=== PATIENT | male | born 1970 | race Caucasian/White ===

== ENCOUNTER 2022-10-08 01:34 | Observation (INO) ==
[2022-10-08] MEDS ORDERED: SODIUM CHLORIDE 0.9% 1000ML 1,000 ML IV ONE (02:16)
[2022-10-08] MEDS ORDERED: ACETAMINOPHEN 500 MG TAB PO STA (02:17)
[2022-10-08 02:30] LABS: Basophils # (auto) 0.06 K/uL (0-0.2); Basophils % (auto) 0.8 %; Eosinophils # (auto) 0.15 K/uL (0-0.50); Eosinophils % (auto) 2.1 %; Hematocrit (blood only) 48.2 % (40.1-51.0); Hemoglobin 16.9 g/dl (14.0-18.0); Immature Granulocytes # (auto) 0.03 K/uL (0.00-0.02); Immature Granulocytes % (auto) 0.4 %; Lymphocytes % (auto) 19.6 %; Mean Corpuscular Hemoglobin 31.8 pg (25.0-34.0); Mean Corpuscular Hgb Conc 35.1 g/dL (32.0-36.0); Mean Corpuscular Volume 90.8 fL (80.0-100.0); Mean Platelet Volume 11.6 fL (9.4-12.4); Monocytes % (auto) 16.8 %; Neutrophils # (auto) 4.29 K/uL (1.4-6.5); Neutrophils % (auto) 60.3 %; Platelet Count 189 K/uL (130-400); RDW Coefficient of Variation 12.8 % (11.5-14.5); Red Blood Count 5.31 M/uL (4.63-6.08); White Blood Count 7.13 K/ul (4.8-10.8)
[2022-10-08] MEDS ORDERED: ONDANSETRON INJ 2 MG/ML 2 ML VIAL IV STA (03:28)
[2022-10-08 04:33] LABS: Alanine Aminotransferase 54 U/L (7-52); Albumin Level 3.6 gm/dl (3.4-5.0); Alkaline Phosphatase 162 U/L (34-104); Anion Gap 9 (3-11); Aspartate Aminotransferase 47 U/L (13-39); BUN Creatinine Ratio 11.6 (10-20); Bilirubin,Total 0.5 mg/dl (0.2-1.0); Blood Urea Nitrogen 10 mg/dl (6-23); Calcium 8.3 mg/dl (8.5-10.1); Carbon Dioxide 24 mmol/L (21-32); Chloride 95 mmol/L (98-107); Creatinine Clr Calc Pharmacy 130.9 ml/min; Est GFR (African American) 115.6 ml/min; Est GFR (Non-African American) 99.7 ml/min; Glucose 454 mg/dl (70-99(Fasting)); Magnesium 1.9 mg/dl (1.7-2.4); Potassium 4.5 mmol/L (3.5-5.1); Sodium 128 mmol/L (136-145); Total Protein 6.9 gm/dl (6.0-8.3)
[2022-10-08 05:36] LABS: Appearance Urine Clear (Clear); Bilirubin Urine Negative (Negative); Blood Urine Negative (Negative); Color Urine Yellow; Glucose Urine UA 3+ (Negative); Ketones Urine Trace (Negative); Leukocyte Esterase Urine Negative (Negative); Nitrite Urine Negative (Negative); Protein Urine Negative (Negative); Specific Gravity Urine 1.033 (1.000-1.030); Urobilinogen Urine Negative (Negative); pH Urine 5.5 (4.5-7.5)
[2022-10-08] MEDS: SODIUM CHLORIDE 0.9% 500 ML IV SCH ×2 (06:13→12:24)
[2022-10-08] MEDS ORDERED: POLYETHYLENE (MIRALAX) 17 GM PACK PO PRN (06:55)
[2022-10-08] MEDS ORDERED: MAGNESIUM HYDROXIDE SUSP 30 ML UDC PO PRN (06:55)
[2022-10-08] MEDS ORDERED: ALUMINUM/MAGNESIUM SUSP 30 ML UDC PO PRN (06:55)
[2022-10-08] MEDS ORDERED: DEXTROSE 50% 50 ML SYRINGE IV PRN (06:57)
[2022-10-08] MEDS ORDERED: PHARMACY GLYCEMIC MGMT CONSULT PRN (06:57)
[2022-10-08] MEDS ORDERED: CARBOHYDRATES FOR HYPOGLYCEMIA PO PRN (06:57)
[2022-10-08] MEDS ORDERED: GLUCAGON FOR INJ 1 MG VIAL SQ PRN (06:57)
[2022-10-08] MEDS ORDERED: GLUCOSE 10 TAB/TUBE PO PRN (06:57)
[2022-10-08] MEDS ORDERED: GLUCOSE 40% GEL 15 GM TUBE PO PRN (06:57)
--- NOTE | 2022-10-08 07:08 | History & Physical Report ---
Date of Service October 08, 2022 Assessment & Plan (1) Influenza A: Plan Generalized weakness Influenza A Patient reports cough productive of clear sputum, reports becoming weak and fatigue Patient reports decreased appetite in the last few days Supportive care, PT/OT when able Hypoglycemia History of diabetes Blood glucose elevated at admission, will get A1c, glycemic pharmacy consult, sliding scale insulin, IV fluid, continue to monitor. health educator consult. Mild hyponatremia: Likely secondary to decreased appetite, low-sodium diet, regular diet for now as patient has not been eating lately, once appetite opens up then transition to carbohydrate consistent diet with low sodium. Monitor labs. DVT prophylaxis: Heparin subcu Full code History of Present Illness Chief Complaint: Weakness, lethargy Primary Care Provider: NO PCP 52-year-old male with PMH of indigestion and no other significant PMH who recently presented to the ED with complaint of cough and was diagnosed with influenza A and discharged came back today because of feeling not well, jazmín rgy. He complains of some headache, belly pain ongoing secondary to cough, and has history of heroin abuse in the past as well. He does have history of diabetes but has chosen not to take any medications for this according to him. Patient was sleeping and was difficult to get history out of patient at bedside exam, reports some clear sputum with the cough, reports feeling worse/fatigue/weak/febrile. Patient denies any acute changes in his bowel or bladder habits. Reports smoking 10 cigarettes a day, denies alcohol use, denies current drug abuse Full code Patient reports that he does not take any medications at home. Allergies Allergy/AdvReac Type Severity Reaction Status Date / Time No Known Allergies Allergy Verified 10/08/22 02:40 Home Medications Medication Instructions Recorded Confirmed Type omeprazole magnesium 20 mg 20 mg PO DAILY PRN 10/08/22 10/08/22 History tablet,delayed release (Prilosec HEARTBURN/INDIGESTION OTC) Past Med/Surg History Social History Smoking Status: Current every day smoker Tobacco Type: Cigarettes Preferred Language: Palestinian Feels Safe at Home: Yes Review of Systems Review of Systems: Negative otherwise mentioned in HPI. Physical Exam Physical Exam: GENERAL: Alert and oriented x3. sleepy, on RA. HEENT: No pallor, no icterus. Pupils equal, round and reactive to light. Oral mucosa moist. NECK: No JVD, no neck masses. HEART: S1 and S2 heard. tachycardia. No murmur, no gallop. RESPIRATORY SYSTEM: Normal AP diameter. No accessory muscle use. No wheezing, no crackles. ABDOMEN: Soft, bowel sounds present, nontender, no distention. CENTRAL NERVOUS SYSTEM: No facial droop. Speech is clear. Obeys simple commands. Moves extremities. EXTREMITIES: No edema, no erythema seen. Results & Data Results & Data ([facility]) Vital Signs (Past 12 Hours) Vital Signs Temp Pulse Pulse Resp BP BP Pulse Ox 10/08/22 06:13 97 H 17 139/90 91 10/08/22 05:08 98 H 17 135/88 94 10/08/22 03:48 37.4 C 94 H 15 130/85 95 10/08/22 02:39 96 10/08/22 02:38 115 H 20 166/116 H 96 10/08/22 01:37 37.8 C H 125 H 18 98/66 L 98 O2 Del Method 10/08/22 06:13 Room Air 10/08/22 05:08 Room Air 10/08/22 03:48 Room Air 10/08/22 02:39 Room Air 10/08/22 02:38 Room Air 10/08/22 01:37 Room Air
[2022-10-08] MEDS ORDERED: SODIUM CHLORIDE 0.9% 1000ML 1,000 ML IV SCH (07:15)
--- NOTE | 2022-10-08 08:24 | Emergency Department Note ---
Impression & Plan Acute hyponatremia, Hyperglycemia due to type 2 diabetes mellitus, Dehydration, Urinary incontinence Admit to [facility] ED Provider Note NAME: MARIZA SON JR AGE: 52 SEX: M ARRIVES VIA: Walk-In INFORMANT: [Patient] ED PROVIDER(S): Ro Horne DO CHIEF COMPLAINT: Fever; cough; urinary incontinence PLAN: Disposition: Admit to [facility] Condition: Fair MEDICAL DECISION MAKING: This is a 52-year-old male patient who was diagnosed with influenza just 2 days ago who presents back to the emergency department with generalized weakness, co ugh, fever and urinary incontinence. The patient states that he has been outside the hospital and back in the hospital staying in the [facility]. The patient was significantly tachycardic and hypertensive when he first arrived. He was bolused with IV normal saline solution laboratory studies show si gnificant hyperglycemia and hyponatremia. there is no evidence of UTI. I discussed the case with the [facility] Triage Nursing notes reviewed and agree with them. Vital Signs: reviewed and remarkable for tachycardia and hypotension Differential diagnosis: Sepsis UTI ER treatment provided: IV normal saline bolus Cardiac monitoring Diagnostics interpreted by me: ECG: Sinus tachycardia at [address] segment elevation or signs of ischemia. There is no ectopy. Cardiac Monitoring: Sinus tachycardia at 112 Laboratory studies: [See below] [] Imaging studies: As per my interpretation Portable chest x-ray: No acute pulm infiltrates or consolidations. HPI: 52/M arrives for evaluation of []urinary incontinence, cough, nausea. Patient states that he has been outside the hospital and in the [facility] since he was discharged 2 days ago after being diagnosed with influenza. He has felt very weak and been coughing. He has nausea and has been peeing himself. ROS: See above HPI for pertinent positives & negatives. A total of [10] systems reviewed and were otherwise negative. PAST MEDICAL HISTORY:Diabetes, depression PAST SURGICAL HISTORY:[See Below] FAMILY HISTORY:[See Below] SOCIAL HISTORY:Patient states that he lives in [place], HOME MEDICATIONS:See list ALLERGIES:None VITALS:[See Below] PHYSICAL EXAMINATION: HEENT: Head - normocephalic and atraumatic. Pupils are equal, round, and reactive to light. Extraocular eye muscles are intact, and sclera are anicteric. Nose - moist nasal mucosa without discharge. Mouth - moist buccal mucosa. Oropharynx is nonerythematous and there is no tonsillar exudate or edema noted. Neck: Supple; no JVD, nuchal rigidity, cervical lymphadenopathy, or auscultated bruits. Heart: Tachycardic rate and regular rhythm. There is a normal S1 and S2 with no murmurs, clicks, or gallops appreciated. Lungs: Clear to auscultation bilaterally with no wheezes, rales, or rhonchi. Abdomen: Soft, completely nontender, nondistended, with good bowel sounds. There are no palpable pulsatile masses or hepatosplenomegaly. There is no guarding, rigidity, or rebound noted. Extremities: No evidence of cyanosis, clubbing, or edema. There are easily palpable peripheral pulses. Skin: warm and dry with good turgor and no rashes. ED COURSE: Times/Reassessments: 310: Patient was evaluated in room B5. A complete history and physical was performed. An order was placed for continuous cardiac monitoring. The patient was in a sinus tachycardia at 112. A twelve-lead EKG was obtained as described above. The patient was bolused with IV normal saline solution. [facility] for further management. Ro Horne DO Past Med/Surg History Social History Smoking Status: Current every day smoker Tobacco Type: Cigarettes Preferred Language: Vincentian Communication Ability: Effective Feels Safe at Home: Yes Assistive Devices: None Allergies Allergies Allergy/AdvReac Type Severity Reaction Status Date / Time No Known Allergies Allergy Verified 10/08/22 02:40 Home Meds Home Medications Medication Instructions Recorded Confirmed omeprazole magnesium 20 mg 20 mg PO DAILY PRN 10/08/22 10/08/22 tablet,delayed release (Prilosec HEARTBURN/INDIGESTION OTC) Results & Data (ED) Vital Signs Vital Signs - 24 hr 10/08/22 01:37 10/08/22 02:38 10/08/22 02:39 Temperature 37.8 C H Temperature Source Temporal Artery Scan Pulse Rate 125 H Pulse Rate [Apical] 115 H Respiratory Rate 18 20 Respiratory Depth Blood Pressure 98/66 L Blood Pressure [Left Arm] 166/116 H Blood Pressure Mean 76 Blood Pressure Mean [Left Arm] 132 Pulse Oximetry 98 96 96 Oxygen Delivery Method Room Air Room Air Room Air Sepsis Recent Fever Within 48 Hours Yes Sepsis New/Unexplained Change in Mental Status N/A Sepsis Action Taken by Nursing No Action Required 10/08/22 03:48 10/08/22 05:08 10/08/22 06:13 Temperature 37.4 C Temperature Source Oral Pulse Rate Pulse Rate [Apical] 94 H 98 H 97 H Respiratory Rate 15 17 17 Respiratory Depth Normal Normal Normal Blood Pressure Blood Pressure [Left Arm] 130/85 135/88 139/90 Blood Pressure Mean Blood Pressure Mean [Left Arm] 100 103 106 Pulse Oximetry 95 94 91 Oxygen Delivery Method Room Air Room Air Room Air Sepsis Recent Fever Within 48 Hours Sepsis New/Unexplained Change in Mental Status Sepsis Action Taken by Nursing Laboratory Data Result diagrams: 10/09/22 10:38 10/09/22 10:38 Lab Results 10/08/22 10/08/22 10/08/22 Range/Units 02:00 02:00 02:00 WBC 7.13 (4.8-10.8) K/ul RBC 5.31 (4.63-6.08) M/uL Hgb 16.9 (14.0-18.0) g/dl Hct 48.2 (40.1-51.0) % MCV 90.8 (80.0-100.0) fL MCH 31.8 (25.0-34.0) pg MCHC 35.1 (32.0-36.0) g/dL RDW Std Deviation 42.0 (36.4-46.3) fL RDW Coeff of Mary 12.8 (11.5-14.5) % Plt Count 189 (130-400) K/uL MPV 11.6 (9.4-12.4) fL Immature Gran % (Auto) 0.4 % Neut % (Auto) 60.3 % Lymph % (Auto) 19.6 % Story % (Auto) 16.8 % Eos % (Auto) 2.1 % Baso % (Auto) 0.8 % Neut # (Auto) 4.29 (1.4-6.5) K/uL Lymph # (Auto) 1.40 (1.2-3.4) K/uL Story # (Auto) 1.20 H (0.24-0.82) K/uL Eos # (Auto) 0.15 (0-0.50) K/uL Baso # (Auto) 0.06 (0-0.2) K/uL Immature Gran # (Auto) 0.03 H (0.00-0.02) K/uL Sodium Cancelled Potassium Cancelled Chloride Cancelled Carbon Dioxide Cancelled Anion Gap Cancelled BUN Cancelled Creatinine Cancelled Est Cr Clr Drug Dosing Cancelled Est GFR ( Amer) Cancelled Est GFR (Non-Af Amer) Cancelled BUN/Creatinine Ratio Cancelled Glucose Cancelled POC Glucose (70-99) mg/dl Estimat Average Glucose mg/dl Hemoglobin A1c (4.5-5.6) % Lactate (0.4-2.0) mmol/L Calcium Cancelled Magnesium Cancelled Total Bilirubin Cancelled Direct Bilirubin Cancelled AST Cancelled ALT Cancelled Alkaline Phosphatase Cancelled Troponin I High Sens 16.3 (0-20) pg/ml Total Protein Cancelled Albumin Cancelled Procalcitonin Cancelled Urine Color Urine Appearance (Clear) Urine pH (4.5-7.5) Ur Specific Waldron (1.000-1.030) Urine Protein (Negative) Urine Glucose (UA) (Negative) Urine Ketones (Negative) Urine Blood (Negative) Urine Nitrite (Negative) Urine Bilirubin (Negative) Urine Urobilinogen (Negative) Ur Leukocyte Esterase (Negative) SARS-CoV-2, RNA, NAAT (NEGATIVE) 10/08/22 10/08/22 10/08/22 Range/Units 02:00 03:14 03:14 WBC (4.8-10.8) K/ul RBC (4.63-6.08) M/uL Hgb (14.0-18.0) g/dl Hct (40.1-51.0) % MCV (80.0-100.0) fL MCH (25.0-34.0) pg MCHC (32.0-36.0) g/dL RDW Std Deviation (36.4-46.3) fL RDW Coeff of Mary (11.5-14.5) % Plt Count (130-400) K/uL MPV (9.4-12.4) fL Immature Gran % (Auto) % Neut % (Auto) % Lymph % (Auto) % Story % (Auto) % Eos % (Auto) % Baso % (Auto) % Neut # (Auto) (1.4-6.5) K/uL Lymph # (Auto) (1.2-3.4) K/uL Story # (Auto) (0.24-0.82) K/uL Eos # (Auto) (0-0.50) K/uL Baso # (Auto) (0-0.2) K/uL Immature Gran # (Auto) (0.00-0.02) K/uL Sodium Potassium Chloride Carbon Dioxide Anion Gap BUN Creatinine Est Cr Clr Drug Dosing Est GFR ( Amer) Est GFR (Non-Af Amer) BUN/Creatinine Ratio Glucose POC Glucose (70-99) mg/dl Estimat Average Glucose 384 mg/dl Hemoglobin A1c 15.0 H (4.5-5.6) % Lactate 1.7 (0.4-2.0) mmol/L Calcium Magnesium Total Bilirubin Direct Bilirubin AST ALT Alkaline Phosphatase Troponin I High Sens (0-20) pg/ml Total Protein Albumin Procalcitonin 0.13 Urine Color Urine Appearance (Clear) Urine pH (4.5-7.5) Ur Specific Waldron (1.000-1.030) Urine Protein (Negative) Urine Glucose (UA) (Negative) Urine Ketones (Negative) Urine Blood (Negative) Urine Nitrite (Negative) Urine Bilirubin (Negative) Urine Urobilinogen (Negative) Ur Leukocyte Esterase (Negative) SARS-CoV-2, RNA, NAAT (NEGATIVE) 10/08/22 10/08/22 10/08/22 Range/Units 03:14 05:02 06:11 WBC (4.8-10.8) K/ul RBC (4.63-6.08) M/uL Hgb (14.0-18.0) g/dl Hct (40.1-51.0) % MCV (80.0-100.0) fL MCH (25.0-34.0) pg MCHC (32.0-36.0) g/dL RDW Std Deviation (36.4-46.3) fL RDW Coeff of Mary (11.5-14.5) % Plt Count (130-400) K/uL MPV (9.4-12.4) fL Immature Gran % (Auto) % Neut % (Auto) % Lymph % (Auto) % Story % (Auto) % Eos % (Auto) % Baso % (Auto) % Neut # (Auto) (1.4-6.5) K/uL Lymph # (Auto) (1.2-3.4) K/uL Story # (Auto) (0.24-0.82) K/uL Eos # (Auto) (0-0.50) K/uL Baso # (Auto) (0-0.2) K/uL Immature Gran # (Auto) (0.00-0.02) K/uL Sodium 128 L Potassium 4.5 Chloride 95 L Carbon Dioxide 24 Anion Gap 9 BUN 10 Creatinine 0.86 Est Cr Clr Drug Dosing 130.9 Est GFR ( Amer) 115.6 Est GFR (Non-Af Amer) 99.7 BUN/Creatinine Ratio 11.6 Glucose 454 H* POC Glucose 436 H* (70-99) mg/dl Estimat Average Glucose mg/dl Hemoglobin A1c (4.5-5.6) % Lactate (0.4-2.0) mmol/L Calcium 8.3 L Magnesium 1.9 Total Bilirubin 0.5 Direct Bilirubin TNP AST 47 H ALT 54 H Alkaline Phosphatase 162 H Troponin I High Sens (0-20) pg/ml Total Protein 6.9 Albumin 3.6 Procalcitonin Urine Color Yellow Urine Appearance Clear (Clear) Urine pH 5.5 (4.5-7.5) Ur Specific Waldron 1.033 H (1.000-1.030) Urine Protein Negative (Negative) Urine Glucose (UA) 3+ H (Negative) Urine Ketones Trace H (Negative) Urine Blood Negative (Negative) Urine Nitrite Negative (Negative) Urine Bilirubin Negative (Negative) Urine Urobilinogen Negative (Negative) Ur Leukocyte Esterase Negative (Negative) SARS-CoV-2, RNA, NAAT (NEGATIVE) 10/08/22 Range/Units 06:13 WBC (4.8-10.8) K/ul RBC (4.63-6.08) M/uL Hgb (14.0-18.0) g/dl Hct (40.1-51.0) % MCV (80.0-100.0) fL MCH (25.0-34.0) pg MCHC (32.0-36.0) g/dL RDW Std Deviation (36.4-46.3) fL RDW Coeff of Mary (11.5-14.5) % Plt Count (130-400) K/uL MPV (9.4-12.4) fL Immature Gran % (Auto) % Neut % (Auto) % Lymph % (Auto) % Story % (Auto) % Eos % (Auto) % Baso % (Auto) % Neut # (Auto) (1.4-6.5) K/uL Lymph # (Auto) (1.2-3.4) K/uL Story # (Auto) (0.24-0.82) K/uL Eos # (Auto) (0-0.50) K/uL Baso # (Auto) (0-0.2) K/uL Immature Gran # (Auto) (0.00-0.02) K/uL Sodium Potassium Chloride Carbon Dioxide Anion Gap BUN Creatinine Est Cr Clr Drug Dosing Est GFR ( Amer) Est GFR (Non-Af Amer) BUN/Creatinine Ratio Glucose POC Glucose (70-99) mg/dl Estimat Average Glucose mg/dl Hemoglobin A1c (4.5-5.6) % Lactate (0.4-2.0) mmol/L Calcium Magnesium Total Bilirubin Direct Bilirubin AST ALT Alkaline Phosphatase Troponin I High Sens (0-20) pg/ml Total Protein Albumin Procalcitonin Urine Color Urine Appearance (Clear) Urine pH (4.5-7.5) Ur Specific [place] (1.000-1.030) Urine Protein (Negative) Urine Glucose (UA) (Negative) Urine Ketones (Negative) Urine Blood (Negative) Urine Nitrite (Negative) Urine Bilirubin (Negative) Urine Urobilinogen (Negative) Ur Leukocyte Esterase (Negative) SARS-CoV-2, RNA, NAAT NEGATIVE (NEGATIVE) Administered Medications Acetaminophen (Acetaminophen 325 Mg Tab) 650 mg PO Q4H PRN PRN Reason: Pain or Fever Stop: 11/07/22 06:54 Last Admin: 10/09/22 00:33 Dose: 650 mg Documented By: GRACE Enoxaparin Sodium (Enoxaparin Inj 40 Mg/0.4 Ml Syr) 40 mg SQ QAM BESS Stop: 11/07/22 08:59 Last Admin: 10/09/22 08:25 Dose: Not Given Documented By: Admin: 10/08/22 10:31 Dose: Not Given Documented By: AMRITA Insulin Aspart (Insulin Aspart Per Unit) 0 units SC ACHS [facility] Stop: 11/07/22 07:29 Last Admin: 10/09/22 12:53 Dose: 17 units Documented By: ALFA Co-signed By: BRANDEE Admin: 10/09/22 08:36 Dose: 20 units Documented By: ALFA Co-signed By: BRANDEE Admin: 10/08/22 22:25 Dose: 27 units Documented By: GRACE Co-signed By: CHRISTINA Admin: 10/08/22 16:45 Dose: 23 units Documented By: GRAHAM Co-signed By: CHRISTIANO Admin: 10/08/22 12:24 Dose: Not Given Documented By: Admin: 10/08/22 08:59 Dose: Not Given Documented By: AMRITA Co-signed By: TREV Insulin Glargine (Lantus Per Unit Charge) 15 units SQ QAM [facility] Stop: 11/08/22 08:59 Last Admin: 10/09/22 08:31 Dose: 15 units Documented By: ALFA Co-signed By: BRANDEE Menthol (Cough Drop (Sugar Free) Ruben 24 Ruben/1 Box) 1 ruben BUCCAL Q4H PRN PRN Reason: Sore Throat Stop: 11/08/22 07:34 Last Admin: 10/09/22 08:26 Dose: 1 ruben Documented By: ALFA Metformin HCl (Metformin Hcl Er 500 Mg Tabcr) 500 mg PO DAILYBB [facility] Stop: 11/08/22 06:29 Last Admin: 10/09/22 06:28 Dose: Not Given Documented By: GRACE Miscellaneous (Remove Nicoderm Patch) 1 each N/A DAILY@0859 [facility] Stop: 11/07/22 09:29 Last Admin: 10/09/22 08:25 Dose: Not Given Documented By: Admin: 10/08/22 10:31 Dose: Not Given Documented By: AMRITA Nicotine (Nicotine 14 Mg/24 Hr Patch) [facility] [place] [facility] [place]: 11/07/22 09:29 Last Admin: 10/09/22 08:25 Dose: Not Given Documented By: Admin: 10/08/22 10:31 Dose: Not Given Documented By: AMRITA Oseltamivir Phosphate (Oseltamivir Phosphate 75 Mg Cap) 75 mg PO BID [facility]; Protocol Stop: 10/13/22 13:34 Last Admin: 10/09/22 08:26 Dose: 75 mg Documented By: Admin: 10/08/22 23:00 Dose: Not Given Documented By: Admin: 10/08/22 14:11 Dose: Not Given Documented By: GRAHAM Pantoprazole Sodium (Pantoprazole 40 Mg Tab) 40 mg PO DAILY [facility]; Protocol Stop: 11/08/22 08:59 Last Admin: 10/09/22 08:36 Dose: 40 mg Documented By: ALFA Phenol (Chloraseptic 1.4% Soln 180 Ml Btl) 2 sprays MT Q4H PRN PRN Reason: Sore Throat Stop: 11/08/22 07:35 Last Admin: 10/09/22 08:26 Dose: 2 sprays Documented By: ALFA Discontinued Medications Acetaminophen (Acetaminophen 500 Mg Tab) 1,000 mg PO NOW STA Stop: 10/08/22 02:18 Last Admin: 10/08/22 02:33 Dose: 1,000 mg Documented By: KARON Sodium Chloride (Nss 1000ml) 1,000 mls @ 999 mls/hr IV .Q1H1M ONE Stop: 10/08/22 03:16 Last Infusion: 10/08/22 03:34 Dose: 0 mls/hr Documented By: Admin: 10/08/22 02:33 Dose: 999 mls/hr Documented By: KARON Sodium Chloride (Nss) 500 mls @ 75 mls/hr IV .Q6H40M [facility] Stop: 10/08/22 18:07 Last Admin: 10/08/22 12:24 Dose: Not Given Documented By: Infusion: 10/08/22 10:31 Dose: 0 mls/hr Documented By: Admin: 10/08/22 06:13 Dose: 125 mls/hr Documented By: CESAR Sodium Chloride (Nss 1000ml) 1,000 mls @ 65 mls/hr IV .[id number] [facility] Stop: 10/08/22 22:38 Last Admin: 10/08/22 11:00 Dose: Not Given Documented By: GRAHAM Insulin Aspart (Insulin Aspart Per Unit) 0 units SC 0000,[id number] [facility] Stop: 10/09/22 04:01 Last Admin: 10/09/22 04:43 Dose: Not Given Documented By: Admin: 10/09/22 00:46 Dose: 4 units Documented By: GRACE Co-signed By: Insulin Glargine (Lantus Per Unit Charge) 25 units SQ NOW STA Stop: 10/08/22 08:34 Last Admin: 10/08/22 09:00 Dose: Not Given Documented By: AMRITA Metformin HCl (Metformin Hcl Er 500 Mg Tabcr) 500 mg PO ONE ONE Stop: 10/08/22 13:31 Last Admin: 10/08/22 14:11 Dose: Not Given Documented By: GRAHAM Ondansetron HCl (Ondansetron Inj 2 Mg/Ml 2 Ml Vial) 4 mg IV NOW STA Stop: 10/08/22 03:29 Last Admin: 10/08/22 03:46 Dose: 4 mg Documented By: CESAR Discharge Plan Visit Data Chief Complaint: Illness ED Provider: Ro Horne Discharge Problem: Acute hyponatremia, Hyperglycemia due to type 2 diabetes mellitus, Dehydration, Urinary incontinence Patient Disposition: Admitted As Inpatient Discharge Instructions Interventions: ED Discharge Assessment Last Done: 10/08/22 09:16
[2022-10-08] MEDS ORDERED: LANTUS PER UNIT CHARGE SQ STA (08:33)
--- NOTE | 2022-10-08 08:37 | XRay Report ---
XR chest 1V portable HISTORY: Sepsis COMPARISON: Chest 10/06/2022. FINDINGS: The lungs are clear. Cardiac silhouette is normal in size. No pleural effusions. No pneumot horax. Old, healed left side rib fractures again noted. IMPRESSION: No acute process. ACT 112: Negative or not required by law. Electronically signed by: Jono Ashby M.D. 10/08/2022 8:35 AM
[2022-10-08] MEDS: INSULIN ASPART PER UNIT SC SCH ×4 (08:59→22:25)
[2022-10-08] MEDS ORDERED: HEPARIN SOD 5,000 UNIT/0.5 ML VIAL SQ SCH (09:00)
[2022-10-08] MEDS ORDERED: PANTOprazole 40 MG TAB PO PRN (09:36)
--- NOTE | 2022-10-08 10:04 | Electrocardiogram Report ---
Test Reason : Blood Pressure : / mmHG Vent. Rate : 116 BPM Atrial Rate : 116 BPM P-R Int : 144 ms QRS Dur : 084 ms QT Int : 294 ms P-R-T Axes : 047 061 034 degrees QTc Int : 408 ms Poor data quality, interpretation may be adversely affected Sinus tachycardia Otherwise normal ECG No previous ECGs available Confirmed by Mohit Quiroz ([id number]) on 10/08/2022 10:04:30 AM Referred By: Confirmed By:Zeke Quiroz
[2022-10-08] MEDS: ENOXAPARIN INJ 40 MG/0.4 ML SYR SQ SCH (10:31)
[2022-10-08] MEDS: NICOTINE 14 MG/24 HR PATCH TD SCH (10:31)
[2022-10-08] MEDS ORDERED: guaiFENesin/DEXTROM SYRUP 200MG/20MG 10ML UDC PO PRN (11:31)
[2022-10-08 11:34] LABS: Estimated Average Glucose 384 mg/dl
--- NOTE | 2022-10-08 13:24 | Hospitalist Progress Note ---
Date of Service October 08, 2022 Assessment & Plan (1) Influenza A: Plan Generalized weakness Influenza A -CXR:No acute process. 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 Reports cough with brownish expectoration, nausea and feels thirsty Denies any significant shortness of breath Also reports some abdominal discomfort with coughing Lethargic No other complaints Review of Systems Review of Systems: All systems reviewed & are unremarkable except as noted in Subjective Physical Exam Physical Exam: Physical Exam: Vitals signs as noted above General Appearance:Obese, no apparent distress Head: normocephalic, Atraumatic Eyes: normal inspection, EOMI Neck: supple, Trachea midline Respiratory/Chest: Normal breath sounds, CTA, No accessory muscle use Cardiovascular: S1, S2, No murmur Abdomen/GI:Soft, Non tender, Bowel sounds present Extremities/Musculoskeletal:normal inspection, no edema Neurologic/Psych:AAOX3, grossly no focal neurological deficits Skin: normal color, warm Results & Data Results & Data ([facility]) Vital Signs (Past 12 Hours) Vital Signs Temp Pulse Pulse Resp BP BP Pulse Ox 10/08/22 08:01 104 H 25 H 96 10/08/22 08:01 143/82 H 10/08/22 08:00 108 H 22 96 10/08/22 07:50 89 15 94 10/08/22 07:40 90 15 95 10/08/22 07:30 88 16 96 10/08/22 07:30 144/92 H 10/08/22 07:20 90 18 95 10/08/22 07:10 95 H 19 95 10/08/22 07:00 88 16 96 10/08/22 07:00 149/96 H 10/08/22 06:50 95 H 17 95 10/08/22 06:40 93 H 19 94 10/08/22 06:30 92 H 16 95 10/08/22 06:30 114/69 10/08/22 06:20 93 H 18 93 10/08/22 06:10 101 H 20 94 10/08/22 06:00 93 H 16 91 10/08/22 06:00 139/90 10/08/22 05:50 103 H 20 91 10/08/22 05:40 100 H 18 91 10/08/22 05:30 103 H 18 10/08/22 05:30 120/82 10/08/22 05:20 96 H 17 92 10/08/22 05:10 98 H 19 92 10/08/22 05:08 98 H 19 90 10/08/22 05:08 135/88 10/08/22 05:01 96 10/08/22 04:50 93 H 16 95 10/08/22 04:40 100 H 18 95 10/08/22 04:30 91 H 18 93 10/08/22 04:30 138/81 10/08/22 04:20 94 H 18 95 10/08/22 04:10 94 H 18 95 10/08/22 04:00 93 H 17 95 10/08/22 04:00 129/87 10/08/22 03:50 94 H 22 95 10/08/22 03:40 95 H 20 97 10/08/22 03:30 95 H 20 95 10/08/22 03:30 130/85 10/08/22 03:20 104 H 17 97 10/08/22 03:10 112 H 22 94 10/08/22 03:00 111 H 22 92 10/08/22 03:00 131/81 10/08/22 02:50 111 H 21 93 10/08/22 02:40 117 H 22 91 10/08/22 02:30 127 H 18 97 10/08/22 02:30 166/116 H 10/08/22 02:20 119 H 26 H 96 10/08/22 02:10 115 H 22 95 10/08/22 06:13 97 H 17 139/90 91 10/08/22 05:08 98 H 17 135/88 94 10/08/22 03:48 37.4 C 94 H 15 130/85 95 10/08/22 02:39 96 10/08/22 02:38 115 H 20 166/116 H 96 10/08/22 01:37 37.8 C H 125 H 18 98/66 L 98 O2 Del Method 10/08/22 08:01 10/08/22 08:01 10/08/22 08:00 10/08/22 07:50 10/08/22 07:40 10/08/22 07:30 10/08/22 07:30 10/08/22 07:20 10/08/22 07:10 10/08/22 07:00 10/08/22 07:00 10/08/22 06:50 10/08/22 06:40 10/08/22 06:30 10/08/22 06:30 10/08/22 06:20 10/08/22 06:10 10/08/22 06:00 10/08/22 06:00 10/08/22 05:50 10/08/22 05:40 10/08/22 05:30 10/08/22 05:30 10/08/22 05:20 10/08/22 05:10 10/08/22 05:08 10/08/22 05:08 10/08/22 05:01 10/08/22 04:50 10/08/22 04:40 10/08/22 04:30 10/08/22 04:30 10/08/22 04:20 10/08/22 04:10 10/08/22 04:00 10/08/22 04:00 10/08/22 03:50 10/08/22 03:40 10/08/22 03:30 10/08/22 03:30 10/08/22 03:20 10/08/22 03:10 10/08/22 03:00 10/08/22 03:00 10/08/22 02:50 10/08/22 02:40 10/08/22 02:30 10/08/22 02:30 10/08/22 02:20 10/08/22 02:10 10/08/22 06:13 Room Air 10/08/22 05:08 Room Air 10/08/22 03:48 Room Air 10/08/22 02:39 Room Air 10/08/22 02:38 Room Air 10/08/22 01:37 Room Air Laboratory Results Short CBC 10/08/22 Range/Units 02:00 WBC 7.13 (4.8-10.8) K/ul Hgb 16.9 (14.0-18.0) g/dl Hct 48.2 (40.1-51.0) % Plt Count 189 (130-400) K/uL BMP 10/08/22 10/08/22 02:00 03:14 Sodium Cancelled 128 L Potassium Cancelled 4.5 Chloride Cancelled 95 L Carbon Dioxide Cancelled 24 BUN Cancelled 10 Creatinine Cancelled 0.86 Glucose Cancelled 454 H* Calcium Cancelled 8.3 L Liver Function 10/08/22 10/08/22 Range/Units 02:00 03:14 Total Bilirubin Cancelled 0.5 Direct Bilirubin Cancelled TNP AST Cancelled 47 H ALT Cancelled 54 H Alkaline Phosphatase Cancelled 162 H Albumin Cancelled 3.6 Urine 10/08/22 Range/Units 05:02 Urine Color Yellow Urine Appearance Clear (Clear) Urine pH 5.5 (4.5-7.5) Ur Specific [place] 1.033 H (1.000-1.030) Urine Protein Negative (Negative) Urine Glucose (UA) 3+ H (Negative)
[2022-10-08] MEDS ORDERED: metFORMIN HCL ER 500 MG TABCR PO ONE (13:30)
[2022-10-08] MEDS: OSELTAMIVIR PHOSPHATE 75 MG CAP PO SCH ×2 (14:11→23:00)
--- NOTE | 2022-10-08 14:16 | Communication Note ---
Date of Service: October 08, 2022 Patient refuses to take medications. Oriented during my encounter. Oriented to RN as well. Refused Accu Checks as well. Records indicate that he refused to provide family contact Info. Will continue to encourage him to adhere to treatment plan.
--- NOTE | 2022-10-08 15:22 | Pharmacy Report ---
Pharmacy Glycemic Short Note 2 - Date of Service October 08, 2022 - Glycemic Short BSG Results (Last 24 hours): 10/08/22 10/08/22 10/08/22 02:00 03:14 06:11 Glucose Cancelled 454 H* POC Glucose 436 H* OUTPATIENT ANTIDIABETIC REGIMEN: * n/a ASSESSMENT: * Patient admitted with influenza A. BSGs in 400s - A1c 15%, pharmacy consulted for glycemic management * Patient refusing all insulin currently and accuchecks - provider is aware. Discussed with provider and plan to start metformin once daily. Encouraged provider to have case management involved for possible outpatient options for PO and to discuss cost (since patient does not want insulin) * Provider would like to continue with novolog scale for now. Patient educated on importance of insulin coverage. Provider okay'ed to sign off of consult tomorrow if continuing to refuse insulin PLAN FOR INPATIENT GLYCEMIC CONTROL: * metformin 500 mg daily * Bolus insulin * NovoLog per scale ACHS or Q6hrs while NPO * Goal Range: Low 110 mg/dL - High 140 mg/dL * Correction Factor: 15 mg/dL/unit * Nutritional / Prandial insulin per carb ratio of 1 unit per 5 grams CHO consumed
[2022-10-09] MEDS: ACETAMINOPHEN 325 MG TAB PO PRN ×2 (00:33→20:47)
[2022-10-09] MEDS: INSULIN ASPART PER UNIT SC SCH ×7 (00:46→23:33)
[2022-10-09] MEDS ORDERED: metFORMIN HCL ER 500 MG TABCR PO SCH (06:30)
[2022-10-09 06:59] LABS: Amphetamines+Metham, Urine Neg (Neg); Barbiturates, Urine Neg (Neg); Benzodiazepine, Urine Neg (Neg); Cocaine, Urine Neg (Neg); MDMA (Ecstacy), Urine Neg (Neg); Methadone, Urine Neg (Neg); Opiate, Urine Neg (Neg); Phencyclidine, Urine Neg (Neg)
[2022-10-09] MEDS ORDERED: COUGH DROP (SUGAR FREE) LOZ 24 LOZ/1 BOX BUCCAL PRN (07:35)
[2022-10-09] MEDS ORDERED: CHLORASEPTIC 1.4% SOLN 180 ML BTL MT PRN (07:36)
[2022-10-09] MEDS: NICOTINE 14 MG/24 HR PATCH TD SCH (08:25)
[2022-10-09] MEDS: ENOXAPARIN INJ 40 MG/0.4 ML SYR SQ SCH (08:25)
[2022-10-09] MEDS: OSELTAMIVIR PHOSPHATE 75 MG CAP PO SCH ×2 (08:26→20:47)
[2022-10-09] MEDS: PANTOprazole 40 MG TAB PO SCH (08:36)
[2022-10-09] MEDS ORDERED: LANTUS PER UNIT CHARGE SQ SCH ×2 (09:00→21:00)
[2022-10-09 10:58] LABS: Hematocrit (blood only) 43.2 % (40.1-51.0); Hemoglobin 14.9 g/dl (14.0-18.0); Mean Corpuscular Hemoglobin 31.7 pg (25.0-34.0); Mean Corpuscular Hgb Conc 34.5 g/dL (32.0-36.0); Mean Corpuscular Volume 91.9 fL (80.0-100.0); Platelet Count 131 K/uL (130-400); RDW Coefficient of Variation 12.9 % (11.5-14.5); RDW Standard Deviation 43.8 fL (36.4-46.3); White Blood Count 5.98 K/ul (4.8-10.8)
[2022-10-09 11:14] LABS: BUN Creatinine Ratio 13.6 (10-20); Calcium 8.8 mg/dl (8.5-10.1); Creatinine Clr Calc Pharmacy 109.3 ml/min; Est GFR (African American) 96.3 ml/min; Est GFR (Non-African American) 83.1 ml/min; Magnesium 2.1 mg/dl (1.7-2.4); Phosphorus 2.2 mg/dl (2.5-4.9); Potassium 4.6 mmol/L (3.5-5.1)
--- NOTE | 2022-10-09 13:38 | Pharmacy Report ---
Pharmacy Glycemic Short Note 2 - Date of Service October 09, 2022 - Glycemic Short BSG Results (Last 24 hours): 10/08/22 10/08/22 10/08/22 16:34 21:56 21:59 Glucose POC Glucose 402 H* 391 H* 401 H* 10/09/22 10/09/22 10/09/22 00:36 02:50 05:51 Glucose POC Glucose 188 H 85 140 H 10/09/22 10/09/22 10/09/22 07:37 10:38 11:49 Glucose 294 H POC Glucose 261 H 222 H OUTPATIENT ANTIDIABETIC REGIMEN: * n/a ASSESSMENT: 10/09: * Patient received insulin doses starting with dinner yesterday, BSG did come down but was back up to 261 mg/dL with AM check * Will initiate lantus between weight based stress of 1 and 2, 15 units this morning and additional 10-20 units this evening per scale * Lunch BSG still elevated although improved from AM- continue current novolog parameters 10/08 * Patient admitted with influenza A. BSGs in 400s - A1c 15%, pharmacy consulted for glycemic management * Patient refusing all insulin currently and accuchecks - provider is aware. Discussed with provider and plan to start metformin once daily. Encouraged provider to have case management involved for possible outpatient options for PO and to discuss cost (since patient does not want insulin) * Provider would like to continue with novolog scale for now. Patient educated on importance of insulin coverage. Provider okay'ed to sign off of consult tomorrow if continuing to refuse insulin PLAN FOR INPATIENT GLYCEMIC CONTROL: * metformin 500 mg daily * Basal Insulin * Lantus 15 units x1 this AM, 10-15 units per scale HS * Bolus insulin * NovoLog per scale ACHS or Q6hrs while NPO * Goal Range: Low 110 mg/dL - High 140 mg/dL * Correction Factor: 20 mg/dL/unit * Nutritional / Prandial insulin per carb ratio of 1 unit per 5 grams CHO consumed
--- NOTE | 2022-10-09 15:35 | Hospitalist Progress Note ---
Date of Service October 09, 2022 Assessment & Plan (1) Influenza A: Plan Generalized weakness Influenza A -CXR:No acute process. 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 Refuses Nicotine patch DVT Px: Lovenox SQ Code Status Full Code Admission and Anticipated Discharge Date Admission Date: October 08, 2022 Subjective Patient is seen and examined at bedside States feeling better today Less cough, dyspnea today Has generalized body ache Nausea,vomiting resolved No other complaints Review of Systems Review of Systems: All systems reviewed & are unremarkable except as noted in Subjective Physical Exam Physical Exam: Physical Exam: Vitals signs as noted above General Appearance:Obese, no apparent distress Head: normocephalic, Atraumatic Eyes: normal inspection, EOMI Neck: supple, Trachea midline Respiratory/Chest: Normal breath sounds, CTA, No accessory muscle use Cardiovascular: S1, S2, No murmur Abdomen/GI:Soft, Non tender, Bowel sounds present Extremities/Musculoskeletal:normal inspection, no edema Neurologic/Psych:AAOX3, grossly no focal neurological deficits Skin: normal color, warm Results & Data Results & Data ([facility]) Vital Signs (Past 12 Hours) Vital Signs Temp Pulse Pulse Pulse Resp BP Pulse Ox 10/09/22 08:00 81 10/09/22 08:00 10/09/22 07:30 78 10/09/22 11:05 36.6 C 101 H 18 110/70 98 10/09/22 07:44 37.1 C 86 16 128/76 98 O2 Del Method 10/09/22 08:00 10/09/22 08:00 Room Air 10/09/22 07:30 10/09/22 11:05 Room Air 10/09/22 07:44 Room Air Laboratory Results Short CBC 10/09/22 Range/Units 10:38 WBC 5.98 (4.8-10.8) K/ul Hgb 14.9 (14.0-18.0) g/dl Hct 43.2 (40.1-51.0) % Plt Count 131 (130-400) K/uL BMP 10/09/22 10:38 Sodium 134 L Potassium 4.6 Chloride 99 Carbon Dioxide 32 BUN 14 Creatinine 1.03 Glucose 294 H Calcium 8.8
[2022-10-10] MEDS: INSULIN ASPART PER UNIT SC SCH ×4 (04:48→17:55)
--- NOTE | 2022-10-10 08:50 | Pharmacy Report ---
Pharmacy Glycemic Short Note 2 - Date of Service October 10, 2022 - Glycemic Short BSG Results (Last 24 hours): 10/09/22 10/09/22 10/09/22 10:38 11:49 16:46 Glucose 294 H POC Glucose 222 H 180 H 10/09/22 10/09/22 10/10/22 20:32 23:17 03:48 Glucose POC Glucose 198 H 230 H 162 H 10/10/22 10/10/22 10/10/22 07:57 07:59 08:01 Glucose POC Glucose 307 H* 225 H 196 H OUTPATIENT ANTIDIABETIC REGIMEN: * No home meds * HbA1c: 15.0% (10/08/22) ASSESSMENT: 10/10: * Brian received a total of 115 units of insulin yesterday (35 units basal + 80 units bolus). BSGs were: [id number] mg/dL. * Overnight check was 162 mg/dL and fasting BSG was 196 mg/dL this AM. BSGs remain uncontrolled. Will increase basal by 25% today. * Tightening correction factor and carb ratio as well this AM. Patient cannot tolerate Metformin. 10/09: * Patient received insulin doses starting with dinner yesterday, BSG did come down but was back up to 261 mg/dL with AM check * Will initiate lantus between weight based stress of 1 and 2, 15 units this morning and additional 10-20 units this evening per scale * Lunch BSG still elevated although improved from AM- continue current novolog parameters 10/08: * Patient admitted with influenza A. BSGs in 400s - A1c 15%, pharmacy consulted for glycemic management * Patient refusing all insulin currently and accuchecks - provider is aware. Discussed with provider and plan to start metformin once daily. Encouraged provider to have case management involved for possible outpatient options for PO and to discuss cost (since patient does not want insulin) * Provider would like to continue with novolog scale for now. Patient educated on importance of insulin coverage. Provider okay'ed to sign off of consult tomorrow if continuing to refuse insulin PLAN FOR INPATIENT GLYCEMIC CONTROL: * Basal Insulin * Lantus 22 units SC BID * Bolus insulin * NovoLog per scale ACHS or Q6hrs while NPO * Goal Range: Low 110 mg/dL - High 140 mg/dL * Correction Factor: 15 mg/dL/unit * Nutritional / Prandial insulin per carb ratio of 1 unit per 4 grams CHO consumed
[2022-10-10] MEDS ORDERED: LANTUS PER UNIT CHARGE SQ SCH ×2 (09:00→21:00)
[2022-10-10 09:18] LABS: BUN Creatinine Ratio 21.2 (10-20); Calcium 8.3 mg/dl (8.5-10.1); Creatinine Clr Calc Pharmacy 163.7 ml/min; Est GFR (African American) 128.8 ml/min; Est GFR (Non-African American) 111.2 ml/min; Potassium 4.1 mmol/L (3.5-5.1)
[2022-10-10 09:20] LABS: Phosphorus 3.2 mg/dl (2.5-4.9)
[2022-10-10] MEDS: OSELTAMIVIR PHOSPHATE 75 MG CAP PO SCH (09:57)
[2022-10-10] MEDS: ENOXAPARIN INJ 40 MG/0.4 ML SYR SQ SCH (09:58)
[2022-10-10] MEDS: NICOTINE 14 MG/24 HR PATCH TD SCH (09:58)
[2022-10-10] MEDS: PANTOprazole 40 MG TAB PO SCH (10:05)
--- NOTE | 2022-10-10 13:10 | Hospitalist Progress Note ---
Date of Service October 10, 2022 Assessment & Plan (1) Influenza A: Plan Generalized weakness Influenza A -CXR:No acute process. -Negative RSV, COVID screen -Blood Cultures: No growth to date Continue Tamiflu Saturating well on room air Continue supportive care Uncontrolled DM II HbA1C: 15.0 -Non compliant with Medications Refused Insulin initially Monitor BGs Counseled on medication compliance Continue insulin per protocol tumbling instructor consulted Hyponatremia In setting of Hyperglycemia Corrected Sodium 134 Received IV fluids Monitor Sodium levels Sodium 135 today GERD Continue PPI H/O Heroin Abuse Anxiety/Depression As per records Currently not on meds Denies any suicidal thoughts Refuses psychiatry evaluation 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 Refuses Nicotine patch DVT Px: Lovenox SQ Code Status Full Code Admission and Anticipated Discharge Date Admission Date: October 08, 2022 Subjective Patient is seen and examined at bedside Cough improving Dyspnea resolved Denies any nausea, vomiting, chest pain, dizziness No other complaints Saturating well on room air Generalized body ache improving as well Review of Systems Review of Systems: All systems reviewed & are unremarkable except as noted in Subjective Physical Exam Physical Exam: Physical Exam: Vitals signs as noted above General Appearance:Obese, no apparent distress Head: normocephalic, Atraumatic Eyes: normal inspection, EOMI Neck: supple, Trachea midline Respiratory/Chest: Normal breath sounds, CTA, No accessory muscle use Cardiovascular: S1, S2, No murmur Abdomen/GI:Soft, Non tender, Bowel sounds present Extremities/Musculoskeletal:normal inspection, no edema Neurologic/Psych:AAOX3, grossly no focal neurological deficits Skin: normal color, warm Results & Data Results & Data ([facility]) Vital Signs (Past 12 Hours) Vital Signs Temp Pulse Resp BP Pulse Ox O2 Del Method 10/10/22 11:17 36.9 C 82 20 143/78 H 97 Room Air 10/10/22 07:50 37.0 C 78 20 129/82 98 Room Air 10/10/22 03:45 37 C 79 18 124/79 100 Room Air Laboratory Results [facility] 10/10/22 10/10/22 08:29 08:29 Sodium 135 L Potassium 4.1 Chloride 102 Carbon Dioxide 26 BUN 14 Creatinine 0.66 D Glucose 287 H 282 H Calcium 8.3 L
--- NOTE | 2022-10-10 13:51 | Communication Note ---
Date of Service: October 10, 2022 Later agreed to discuss with Psychiatry regarding Anxiety/Depression.
--- NOTE | 2022-10-10 20:38 | Communication Note ---
Date of Service: October 10, 2022 I was paged by RN that patient wanted to leave A. Pt was being managed for generalized weakness and influenza A. Per RN, pt was alert and oriented w/ no SI/HI. Pt left the hospital before I was able to see him.
--- NOTE | 2022-10-11 09:28 | Discharge Summary ---
Date of Service October 11, 2022 Admission HPI Per Admitting Provider 52-year-old male with PMH of indigestion and no other significant PMH who recently presented to the ED with complaint of cough and was diagnosed with influenza A and discharged came back today because of feeling not well, lethargy. He complains of some headache, belly pain ongoing secondary to cough, and has history of heroin abuse in the past as well. He does have history of diabetes but has chosen not to take any medications for this according to him. Patient was sleeping and was difficult to get history out of patient at bedside exam, reports some clear sputum with the cough, reports feeling worse/fatigue/ weak/febrile. Patient denies any acute changes in his bowel or bladder habits. Reports smoking 10 cigarettes a day, denies alcohol use, denies current drug abuse Full code Patient reports that he does not take any medications at home. Admission Exam Per Admitting Provider Physical Exam Physical Exam: GENERAL: Alert and oriented x3. sleepy, on RA. HEENT: No pallor, no icterus. Pupils equal, round and reactive to light. Oral mucosa moist. NECK: No JVD, no neck masses. HEART: S1 and S2 heard. tachycardia. No murmur, no gallop. RESPIRATORY SYSTEM: Normal AP diameter. No accessory muscle use. No wheezing, no crackles. ABDOMEN: Soft, bowel sounds present, nontender, no distention. CENTRAL NERVOUS SYSTEM: No facial droop. Speech is clear. Obeys simple commands. Moves extremities. EXTREMITIES: No edema, no erythema seen. Principal Diagnosis Influenza A Uncontrolled DM II Anxiety/Depression Tobacco use Disorder Discharge Data Allergies Allergy/AdvReac Type Severity Reaction Status Date / Time No Known Allergies Allergy Verified 10/08/22 02:40 Consultations 10/08/22 05:47 ED Decision to Admit Stat 10/10/22 13:50 Consult Psychiatry Routine Procedures Performed Laboratory Results WBC 5.98 K/ul (4.8-10.8) 10/09/22 10:38 RBC 4.70 M/uL (4.63-6.08) 10/09/22 10:38 Hgb 14.9 g/dl (14.0-18.0) 10/09/22 10:38 Hct 43.2 % (40.1-51.0) 10/09/22 10:38 MCV 91.9 fL (80.0-100.0) 10/09/22 10:38 MCH 31.7 pg (25.0-34.0) 10/09/22 10:38 MCHC 34.5 g/dL (32.0-36.0) 10/09/22 10:38 RDW Std Deviation 43.8 fL (36.4-46.3) 10/09/22 10:38 RDW Coeff of Mary 12.9 % (11.5-14.5) 10/09/22 10:38 Plt Count 131 K/uL (130-400) 10/09/22 10:38 MPV 11.0 fL (9.4-12.4) 10/09/22 10:38 Immature Gran % (Auto) 0.4 % 10/08/22 02:00 Neut % (Auto) 60.3 % 10/08/22 02:00 Lymph % (Auto) 19.6 % 10/08/22 02:00 [place] % (Auto) 16.8 % 10/08/22 02:00 Eos % (Auto) 2.1 % 10/08/22 02:00 Baso % (Auto) 0.8 % 10/08/22 02:00 Neut # (Auto) 4.29 K/uL (1.4-6.5) 10/08/22 02:00 Lymph # (Auto) 1.40 K/uL (1.2-3.4) 10/08/22 02:00 [place] # (Auto) 1.20 K/uL (0.24-0.82) H 10/08/22 02:00 Eos # (Auto) 0.15 K/uL (0-0.50) 10/08/22 02:00 Baso # (Auto) 0.06 K/uL (0-0.2) 10/08/22 02:00 Immature Gran # (Auto) 0.03 K/uL (0.00-0.02) H 10/08/22 02:00 Sodium 135 mmol/L (136-145) L 10/10/22 08:29 Potassium 4.1 mmol/L (3.5-5.1) 10/10/22 08:29 Chloride 102 mmol/L (98-107) 10/10/22 08:29 Carbon Dioxide 26 mmol/L (21-32) 10/10/22 08:29 Anion Gap 7 (3-11) 10/10/22 08:29 BUN 14 mg/dl (6-23) 10/10/22 08:29 Creatinine 0.66 mg/dl (0.6-1.4) D 10/10/22 08:29 Est Cr Clr Drug Dosing 163.7 ml/min 10/10/22 08:29 Est GFR ( Amer) 128.8 ml/min 10/10/22 08:29 Est GFR (Non-Af Amer) 111.2 ml/min 10/10/22 08:29 BUN/Creatinine Ratio 21.2 (10-20) H 10/10/22 08:29 Glucose 282 mg/dl (70-99(Fasting)) H 10/10/22 08:29 Glucose 287 mg/dl (70-99(Fasting)) H 10/10/22 08:29 POC Glucose 125 mg/dl (70-99) H 10/10/22 16:57 Estimat Average Glucose 384 mg/dl 10/08/22 02:00 Hemoglobin A1c 15.0 % (4.5-5.6) H 10/08/22 02:00 Lactate 1.7 mmol/L (0.4-2.0) 10/08/22 03:14 Calcium 8.3 mg/dl (8.5-10.1) L 10/10/22 08:29 Phosphorus 3.2 mg/dl (2.5-4.9) D 10/10/22 08:29 Magnesium 2.1 mg/dl (1.7-2.4) 10/09/22 10:38 Total Bilirubin 0.5 mg/dl (0.2-1.0) 10/08/22 03:14 Direct Bilirubin TNP 10/08/22 03:14 AST 47 U/L (13-39) H 10/08/22 03:14 ALT 54 U/L (7-52) H 10/08/22 03:14 Alkaline Phosphatase 162 U/L (34-104) H 10/08/22 03:14 Troponin I High Sens 16.3 pg/ml (0-20) 10/08/22 02:00 Total Protein 6.9 gm/dl (6.0-8.3) 10/08/22 03:14 Albumin 3.6 gm/dl (3.4-5.0) 10/08/22 03:14 Procalcitonin 0.13 ng/ml (0-0.5) 10/08/22 03:14 Urine Color Yellow 10/08/22 05:02 Urine Appearance Clear (Clear) 10/08/22 05:02 Urine pH 5.5 (4.5-7.5) 10/08/22 05:02 Ur Specific [place] 1.033 (1.000-1.030) H 10/08/22 05:02 Urine Protein Negative (Negative) 10/08/22 05:02 Urine Glucose (UA) 3+ (Negative) H 10/08/22 05:02 Urine Ketones Trace (Negative) H 10/08/22 05:02 Urine Blood Negative (Negative) 10/08/22 05:02 Urine Nitrite Negative (Negative) 10/08/22 05:02 Urine Bilirubin Negative (Negative) 10/08/22 05:02 Urine Urobilinogen Negative (Negative) 10/08/22 05:02 Ur Leukocyte Esterase Negative (Negative) 10/08/22 05:02 Urine Opiates Screen Neg (Neg) 10/09/22 Unknown Ur Methadone, Qual Neg (Neg) 10/09/22 Unknown Urine Barbiturates Neg (Neg) 10/09/22 Unknown Ur Phencyclidine (PCP) Neg (Neg) 10/09/22 Unknown U Amphetamin/Meth Scrn Neg (Neg) 10/09/22 Unknown MDMA (Ecstasy) Screen Neg (Neg) 10/09/22 Unknown U Benzodiazepines Scrn Neg (Neg) 10/09/22 Unknown Ur Cocaine Metabolite Neg (Neg) 10/09/22 Unknown U Marijuana (THC) Screen Neg (Neg) 10/09/22 Unknown SARS-CoV-2, RNA, NAAT NEGATIVE (NEGATIVE) 10/08/22 06:13 Impressions Chest X-Ray 10/08/22 02:16 XR chest 1V portable HISTORY: Sepsis COMPARISON: Chest 10/06/2022. FINDINGS: The lungs are clear. Cardiac silhouette is normal in size. No pleural effusions. No pneumothorax. Old, healed left side rib fractures again noted. IMPRESSION: No acute process. ACT 112: Negative or not required by law. Electronically signed by: Jono Ashby M.D. 10/08/2022 8:35 AM Diabetes Follow up Diabetes Follow-up Needed for HgbA1c >9% Hospital Course (1) Influenza A: Plan Generalized weakness Influenza A -CXR:No acute process. -Negative RSV, COVID screen -Blood Cultures: No growth to date Continue Tamiflu Saturating well on room air Continue supportive care Uncontrolled DM II HbA1C: 15.0 -Non compliant with Medications Refused Insulin initially Monitor BGs Counseled on medication compliance Continue insulin per protocol telehealth nurse educator consulted Hyponatremia In setting of Hyperglycemia Corrected Sodium 134 Received IV fluids Monitor Sodium levels Sodium 135 today GERD Continue PPI H/O Heroin Abuse Anxiety/Depression As per records Currently not on meds Denies any suicidal thoughts Refuses psychiatry evaluation 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 As per night hospitalist: Date of Service: October 10, 2022 I was paged by RN that patient wanted to leave AMA. Pt was being managed for generalized weakness and influenza A. Per RN, pt was alert and oriented w/ no SI/HI. Pt left the hospital before I was able to see him. Total Time Total Time Spent Total Time Spent (In Minutes): 30 minutes Discharge Plan Discharge Items Patient Disposition: Against Medical Advice Reason For Visit: WEAKNESS Activity: Per Instructions section Non-emergency contact: Primary Care Provider Follow-up/Referrals: PCP,SAULO [Primary Care Provider] - Pending Studies at Discharge: No Stand-Alone Forms: My [facility] [employer], Smoking Cessation Medications and DC Order Prescriptions: Continued omeprazole magnesium [Prilosec OTC] 20 mg Tablet,Delayed Release (Dr/Ec) 20 mg PO DAILY PRN (Reason: HEARTBURN/INDIGESTION) Discharge Orders: Left Against Medical Advice (Routine); Ordered 10/10/22 Ordered By: Soraida Prather/Other Patient Handouts: High Blood Sugar (Hyperglycemia), Hypoglycemia (Low Blood Sugar), Managing Type 2 Diabetes, Diabetes: Meal Planning Admission Data Admit Date/Time: 10/08/22 06:56 Attending Provider: Vinny Gee Admit Provider: Soraida Loyd Primary Care Provider: PCP,NO Other Providers: Soraida Loyd ; Barrera Luis
== END 2022-10-10 19:35 | disposition left against medical advice (07) ==
LOC: ED 01:34 → INTOOBSV 06:56 → EDINP 06:56 → SUATTDRO 06:56 → 2N 09:16

== ENCOUNTER 2024-03-09 15:42 | Inpatient (IN) ==
--- NOTE | 2024-03-09 16:19 | Emergency Department Note ---
ED Provider Note History of Present Illness Chief Complaint: Sore Throat Stated Complaint: ILLNESS Time Seen by Provider: 03/09/24 16:18 This is a 53-year-old male with a history of type 2 diabetes, anxiety, depression, history of homelessness, who presents to the emergency department with a sore throat. This started this morning about 12 hours ago. He states that he is having a hard time swallowing his saliva due to the pain. He states the pain tracks down his neck. He has not had any fevers. Has not taken anything for the pain. Endorses a mild cough intermittently but nothing significant. Denies any known sick contacts aside from someone who had pneumonia 2 weeks ago. No history of strep pharyngitis. Denies any neck rigidity. No sinus congestion. No ear pain. Home Medications Medication Instructions Recorded Confirmed Type omeprazole magnesium 20 mg 20 mg PO DAILY PRN 10/08/22 03/09/24 History tablet,delayed release (Prilosec HEARTBURN/INDIGESTION OTC) glipizide 5 mg tablet 5 mg PO QAM 03/09/24 03/09/24 History Allergies Allergy/AdvReac Type Severity Reaction Status Date / Time No Known Allergies Allergy Verified 03/09/24 17:48 Past Med/Surg History Problem List (Updated 03/10/24 @ 03:21 by EVY Newman) Acute epiglottiditis (Acute) Hepatitis C Supraglottitis Homelessness unspecified Food insecurity Methamphetamine abuse in remission Smoking Uncontrolled diabetes mellitus with hyperglycemia Peripheral neuropathy Hyperglycemia due to type 2 diabetes mellitus (Acute) Dehydration (Acute) Urinary incontinence (Acute) Acute hyponatremia (Acute) Depression (Chronic) Anxiety (Chronic) [id number] (Acute) Medical History Heroin abuse Surgical History No pertinent past surgical history Family History Other No family history of disorders Social History Smoking Status: Current every day smoker Tobacco Type: Cigarettes Cigarettes Per Day: 1/2 ppd; Hx Alcohol Use: No Hx Substance Use: Yes Last Used Substance: Days (ago) Last Used Substance Other:: Patient stated last use was 1 year ago Substance Use Type Other:: fentanyl, meth Preferred Language: Hebrew Communication Ability: Effective Gasket Winder Required: No Beliefs That Will Affect Care: None Current Living Situation: Family Feels Safe at Home: Yes Safety Concerns: Feels Safe At This Time Assistive Devices: None Assistive Devices Comment: patient stated he is in need of both glasses and dentures Physical Exam Vital Signs Vital Signs - 24 hr 03/09/24 15:49 03/09/24 19:44 03/09/24 20:55 Temperature 96.8 F L Temperature Source Temporal Artery Scan Pulse Rate 95 H 95 H Pulse Rate [Finger] 98 H Pulse Rate from SpO2 Sensor Pulse Rhythm [Finger] Regular Respiratory Rate 18 19 Respiratory Effort / Characteristics Non-Labored Spontaneous Non-Labored Spontaneous Respiratory Depth Normal Normal Respiratory Pattern Regular Regular Blood Pressure 115/82 Blood Pressure [Right Arm] 136/92 Blood Pressure Mean 93 Blood Pressure Mean [Right Arm] 106 Pulse Oximetry 100 99 Oxygen Delivery Method Room Air Room Air Sepsis Recent Fever Within 48 Hours No Sepsis New/Unexplained Change in Mental Status N/A Sepsis Action Taken by Nursing No Action Required 03/09/24 20:57 03/09/24 21:00 03/09/24 21:15 Temperature Temperature Source Pulse Rate 95 H 83 Pulse Rate [Finger] Pulse Rate from SpO2 Sensor 95 H 83 Pulse Rhythm [Finger] Respiratory Rate 16 20 Respiratory Effort / Characteristics Respiratory Depth Respiratory Pattern Blood Pressure Blood Pressure [Right Arm] Blood Pressure Mean Blood Pressure Mean [Right Arm] Pulse Oximetry 97 98 97 Oxygen Delivery Method Room Air Sepsis Recent Fever Within 48 Hours Sepsis New/Unexplained Change in Mental Status Sepsis Action Taken by Nursing 03/09/24 21:30 Temperature Temperature Source Pulse Rate 90 Pulse Rate [Finger] Pulse Rate from SpO2 Sensor 89 Pulse Rhythm [Finger] Respiratory Rate 21 Respiratory Effort / Characteristics Respiratory Depth Respiratory Pattern Blood Pressure 135/79 Blood Pressure [Right Arm] Blood Pressure Mean 97 Blood Pressure Mean [Right Arm] Pulse Oximetry 99 Oxygen Delivery Method Sepsis Recent Fever Within 48 Hours Sepsis New/Unexplained Change in Mental Status Sepsis Action Taken by Nursing CONSTITUTIONAL: Well developed, well nourished, uncomfortable appearing. Nontoxic. HEAD: Normocephalic, atraumatic. No facial swelling EYES: conjunctivae normal, extraocular muscles intact. ENMT: External ears normal. Bilateral TMs occluded by cerumen. Nose with normal external appearance, no congestion. Oral mucous membranes moist. There is some oropharyngeal erythema. The uvula is slightly swollen. Voice is slightly muffled. There are no exudates. No tonsillar enlargement. No peritonsillar abscess. Patient able to swallow saliva however intermittently will spit out saliva due to the pain. NECK: Full active range of motion. No rigidity. LYMPHATIC: Tenderness in bilateral anterior cervical lymph node regions. CARDIOVASCULAR: Regular rate and rhythm. No murmurs rubs or gallops. RESPIRATORY: Breathing unlabored and symmetric. Lungs clear to auscultation bilaterally MUSCULOSKELETAL: Moves all extremities at all joints without pain or difficulty. No cyanosis or edema. Back with full range of motion. SKIN: [place], warm, dry. NEUROLOGIC: Awake, alert, oriented. No focal deficits. PSYCHIATRIC: Slightly anxious, otherwise appropriate. Course Administered Medications Acetaminophen (Ofirmev) 1,000 mg in 100 mls @ 400 mls/hr IV Q8H PRN PRN Reason: pain/fever Stop: 03/12/24 21:40 Last Infusion: 03/09/24 23:39 Dose: Infused Documented By: Admin: 03/09/24 22:05 Dose: 400 mls/hr Documented By: MICK Sodium Chloride (Nss) 1,000 mls @ 80 mls/hr IV .[id number] STA Stop: 03/10/24 10:18 Last Admin: 03/09/24 22:01 Dose: 80 mls/hr Documented By: MICK Discontinued Medications Acetaminophen (Acetaminophen 500 Mg Tab) 1,000 mg PO NOW STA Stop: 03/09/24 16:37 Last Admin: 03/09/24 16:54 Dose: Not Given Documented By: Dexamethasone Sodium Phosphate (DexamethasonePf 10 Mg/Ml Vial) 10 mg IV NOW ONE Stop: 03/09/24 17:27 Last Admin: 03/09/24 17:36 Dose: 10 mg Documented By: CHAVA Dexamethasone Sodium Phosphate (DexamethasonePf 10 Mg/Ml Vial) 60 mg IV NOW ONE Stop: 03/09/24 20:37 Last Admin: 03/09/24 20:54 Dose: 60 mg Documented By: MICK Famotidine (Pepcid 20mg Iv Push) 20 mg in 5 mls @ 2.5 mls/min IV NOW STA Stop: 03/09/24 17:44 Last Admin: 03/09/24 17:48 Dose: 2.5 mls/min Documented By: MR Ceftriaxone Sodium (Rocephin) 2,000 mg in 50 mls @ 100 mls/hr IV NOW STA Stop: 03/09/24 20:19 Last Infusion: 03/09/24 20:54 Dose: Infused Documented By: Admin: 03/09/24 20:17 Dose: 100 mls/hr Documented By: MICK Ampicillin Sodium/Sulbactam Sodium 3,000 mg/ Sodium Chloride 100 mls @ 200 mls/hr IV NOW STA Stop: 03/09/24 21:02 Last Infusion: 03/09/24 22:04 Dose: Infused Documented By: Admin: 03/09/24 21:36 Dose: 200 mls/hr Documented By: MICK Vancomycin HCl 2,500 mg/ (Sodium Chloride) 550 mls @ 200 mls/hr IV NOW STA; Protocol Stop: 03/10/24 00:02 Last Infusion: 03/10/24 01:25 Dose: Infused Documented By: Admin: 03/09/24 22:04 Dose: 200 mls/hr Documented By: MICK Lorazepam 0.25 mg/ Syringe 0.25 mls @ 2 mls/min IV NOW STA Stop: 03/09/24 21:39 Last Admin: 03/09/24 22:02 Dose: 2 mls/min Documented By: MICK Insulin Aspart (Insulin Aspart Per Unit Charge) 0 units SC Q6 BESS Stop: 04/08/24 23:29 Last Admin: 03/09/24 23:39 Dose: 2 units Documented By: YANELI Co-signed By: GINGER Ioversol (Optiray 320 125ml) 120 ml IV ONCE ONE Stop: 03/09/24 18:39 Last Admin: 03/09/24 18:41 Dose: 120 ml Documented By: KENDALL Ketorolac Tromethamine (Ketorolac Tromethamine 60 Mg/2 Ml Vial) 15 mg IM NOW STA Stop: 03/09/24 16:37 Last Admin: 03/09/24 16:53 Dose: 15 mg Documented By: MR Nicotine (Nicotine 14 Mg/24 Hr Patch) 1 patch TD ONE STA Stop: 03/09/24 21:49 Last Admin: 03/09/24 22:03 Dose: 1 patch Documented By: [facility] Medical Decision Making Differential Diagnosis Strep pharyngitis, viral pharyngitis, uvulitis, tonsillitis, mononucleosis, peritonsillar abscess, retropharyngeal abscess, epiglottitis, dissection, MA, among other pathology Laboratory Data 03/09/24 17:40 03/09/24 17:40 Lab Results 03/09/24 03/09/24 03/09/24 Range/Units 16:15 16:55 17:40 WBC 14.80 H (4.8-10.8) K/ul RBC 4.97 (4.70-6.10) M/uL Hgb 16.1 (14.0-18.0) g/dl Hct 45.5 (42.0-52.0) % MCV 91.5 (80.0-100.0) fL MCH 32.4 (25.0-34.0) pg MCHC 35.4 (32.0-36.0) g/dL RDW Std Deviation 41.4 (36.4-46.3) fL RDW Coeff of Mary 12.4 (11.5-14.5) % Plt Count 251 (130-400) K/uL MPV 10.4 (9.4-12.4) fL Immature Gran % (Auto) 0.3 % Neut % (Auto) 76.7 % Lymph % (Auto) 14.0 % [place] % (Auto) 7.0 % Eos % (Auto) 1.4 % Baso % (Auto) 0.6 % Neut # (Auto) 11.37 H (1.40-6.50) K/uL Lymph # (Auto) 2.07 (1.20-3.40) K/uL [place] # (Auto) 1.03 H (0.11-0.59) K/uL Eos # (Auto) 0.20 (0.00-0.50) K/uL Baso # (Auto) 0.09 (0.00-0.20) K/uL Immature Gran # (Auto) 0.04 (0.01-0.20) K/uL Sodium 139 (136-145) mmol/L Potassium 4.0 (3.5-5.1) mmol/L Chloride 106 (98-107) mmol/L Carbon Dioxide 25 (21-32) mmol/L Anion Gap 8 (3-11) BUN 16 (6-23) mg/dl Creatinine 0.76 (0.6-1.4) mg/dl Est Cr Clr Drug Dosing 136.4 ml/min Est GFR ( Amer) 120.7 ml/min Est GFR (Non-Af Amer) 104.2 ml/min BUN/Creatinine Ratio 21.1 H (10-20) Glucose 142 H (70-99(Fasting)) mg/dl Calcium 9.2 (8.6-10.3) mg/dl Magnesium 2.0 (1.7-2.4) mg/dl Total Bilirubin 0.4 (0.2-1.0) mg/dl AST 41 H (13-39) U/L ALT 54 H (7-52) U/L Alkaline Phosphatase 113 H (34-104) U/L Troponin I High Sens 5.6 (0-20) pg/ml Total Protein 7.2 (6.0-8.3) gm/dl Albumin 4.0 (3.4-5.0) gm/dl Globulin 3.2 (2.5-4.0) gm/dl Albumin/Globulin Ratio 1.3 (0.9-2) Adenovirus (PCR) Not Detected (NotDetected) B. pertussis DNA (PCR) Not Detected (NotDetected) B.parapertussis DNA PCR Not Detected (NotDetected) C. pneumoniae DNA (PCR) Not Detected (NotDetected) Coronavirus OC43 (PCR) Not Detected (NotDetected) Coronavirus HKU1 (PCR) Not Detected (NotDetected) Coronavirus 229E (PCR) Not Detected (NotDetected) SARS-CoV-2 (PCR) Not Detected (NotDetected) Coronavirus NL63 (PCR) Not Detected (NotDetected) Monoscreen Negative (Negative) Human Metapneumovir PCR Not Detected (NotDetected) Influenza Type A (PCR) Not Detected (NotDetected) Influenza Type B (PCR) Not Detected (NotDetected) M. pneumoniae (PCR) Not Detected (NotDetected) Parainfluenza 1 (PCR) Not Detected (NotDetected) Parainfluenza 2 (PCR) Not Detected (NotDetected) Parainfluenza 3 (PCR) Not Detected (NotDetected) Parainfluenza 4 (PCR) Not Detected (NotDetected) RSV (PCR) Not Detected (NotDetected) Entero/Rhino (PCR) Not Detected (NotDetected) Group A Strep (PCR) NOT DETECTED (NotDetected) Imaging Data Radiologist's Impression: Chest CTA 03/09/24 17:40 CT angio chest dissec wo/w con CLINICAL HISTORY: throat pain radiating into neck, bloody sputum TECHNIQUE: Multidetector row helical CT of the chest was performed before and after injection of IV contrast. Coronal, sagittal, and MIP reformations were obtained. Automated dose lowering techniques and/or adjustment according to patient size were utilized for this exam. Comparison: Comparison is made to chest radiograph 10/08/2022 FINDINGS: Lungs and pleura: 4 mm nodule is in the left lower lobe (image 145). Heart and pericardium: Heart size is normal. No pericardial effusion. Vessels: No aortic dissection or intramural hematoma is seen. Mediastinum and kalyani: Mild esophageal wall thickening is seen. Subcentimeter nodes are seen in the right antecubital station. Chest wall and lower neck: Unremarkable. Abdomen: Unremarkable. Bones: Degenerative changes in the thoracic spine. IMPRESSION: 1. No acute abnormality and in particular no evidence of acute aortic injury. 2. Pulmonary nodule measuring 4 mm. According to Fleischner criteria, no follow-up is required in low risk patients, in high-risk patients, a 12 month follow-up CT can be optionally performed. ACT 112: Negative or not required by law. Electronically signed by: Dimitri Fernández M.D. 03/09/2024 7:12 PM Soft Tissue Neck CT 03/09/24 17:40 CT soft tissue neck w con CLINICAL HISTORY: severe sore throat into neck bloody sputum Technique: Axial CT images of the soft tissues of the neck were obtained following intravenous administration of 100 cc of Omnipaque 300. Automated dose lowering techniques and/or adjustment according to patient size were utilized for this exam. CT DOSE: 2169.61 mGy.cm Comparison: None available at the time of this dictation. Findings: There is prominent swelling at the level of the epiglottis and aryepiglottic folds. There is prominent narrowing of the airway at the level of the aryepiglottic folds. No enlarged lymph nodes are seen. The parotid glands, submandibular glands, and thyroid gland are unremarkable. Imaged portions of the brain parenchyma are unremarkable. The paranasal sinuses and mastoid air cells are normal in appearance. Impression: Swelling of the epiglottis and aryepiglottic folds are seen. Prominent narrowing of the airway is seen. Findings are nonspecific but may represent infectious process involving the epiglottis and/or larynx. Right sided reactive lymph nodes are seen. No definite drainable fluid collection. ACT 112: Negative or not required by law. Electronically signed by: Dimitri Fernández M.D. 03/09/2024 7:38 PM MDM Narrative This is a 53-year-old male who presents to the emergency department with a sore throat that started 12 hours ago. He states that he is having a hard time swallowing, his voice is changed, and is intermittently spitting out his saliva. His uvula is slightly swollen and his oropharynx is erythematous. He has no tonsil enlargement, no exudates. There is no evidence of peritonsillar abscess. He has no neck rigidity but is tender in the anterior cervical lymph node regions. Patient was treated with Toradol and Tylenol. He was unable to swallow the Tylenol. Reevaluated him after about 30 minutes and he was still having severe pain, and was spitting out some blood-tinged sputum and felt like reflux was going up his chest into his throat. He was also given Pepcid and 10 mg dexamethasone. His strep test bio fire are negative. Expanded the differential and decided to obtain labs, EKG, imaging. I spoke with Dr. Fernández cardiology regarding appropriate CT imaging. CT neck soft tissue and CTA of the chest was ordered. EKG: Sinus rhythm with a rate of 89. Intervals within normal limits. Normal axis. No acute ST elevation or evidence of ischemia. Labs: There is leukocytosis at 14.8. No electrolyte disturbances. Glucose minimally elevated at 142. Baseline elevation of AST, ALT, alkaline phosphatase. Troponin normal. Monospot negative. CT of the chest demonstrates a pulmonary nodule, this can be followed by primary care on an outpatient basis. CT of the neck demonstrates evidence of epiglottitis with some airway narrowing. Blood cultures were ordered and a dose of ceftriaxone was ordered. I spoke with Dr. Patino with ENT on-call who came and evaluated the patient at bedside and scoped him. He states the patient has significant epiglottitis and recommends admission to the ICU given his impingement on the airway. He recommends 60 mg dexamethasone and Unasyn which was ordered for him. He will closely monitor the patient and intervene as needed. I discussed the case with Dr. Hurt who agrees to admit the patient. He also spoke with Dr. Patino on my phone for clarifying questions. Impression Acute epiglottiditis Discharge Plan Visit Data Chief Complaint: Sore Throat Stated Complaint: ILLNESS ED Provider: Rylan Wheat ED Midlevel Provider: Antoine Isaac Discharge Problem: Acute epiglottiditis Patient Disposition: Admitted As Inpatient Condition: Fair Discharge Instructions Interventions: ED Discharge Assessment Last Done: 03/09/24 22:43 Discharge Problem: Acute epiglottiditis Qualifiers: Airway obstruction: without obstruction Qualified Code(s): J05.10 - Acute epiglottitis without obstruction
[2024-03-09] MEDS: KETOROLAC TROMETHAMINE 60 MG/2 ML VIAL IM STA (16:53)
[2024-03-09] MEDS: ACETAMINOPHEN 500 MG TAB PO STA (16:54)
[2024-03-09] MEDS: dexAMETHasone**PF** 10 MG/ML VIAL IV ONE ×2 (17:36→20:54)
[2024-03-09] MEDS: FAMOTIDINE 20MG IV PUSH 20 MG/5 ML SYR IV STA (17:48)
[2024-03-09 17:51] LABS: Adenovirus PCR Not Detected (NotDetected); Bordetella parapertussis PCR Not Detected (NotDetected); Bordetella pertussis PCR Not Detected (NotDetected); Chlamydia pneumoniae PCR Not Detected (NotDetected); Coronavirus 229E PCR Not Detected (NotDetected); Coronavirus CoV-2 (COVID19)PCR Not Detected (NotDetected); Coronavirus HKU1 PCR Not Detected (NotDetected); Coronavirus NL63 PCR Not Detected (NotDetected); Coronavirus OC43PCR Not Detected (NotDetected); Human Metapneumovirus PCR Not Detected (NotDetected); Influenza A PCR Not Detected (NotDetected); Influenza B PCR Not Detected (NotDetected); Mycoplasma pneumoniae PCR Not Detected (NotDetected); Parainfluenza Virus 1 PCR Not Detected (NotDetected); Parainfluenza Virus 2 PCR Not Detected (NotDetected); Parainfluenza Virus 3 PCR Not Detected (NotDetected); Parainfluenza Virus 4 PCR Not Detected (NotDetected); Respiratory Syncytial VirusPCR Not Detected (NotDetected); Rhinovirus/Enterovirus PCR Not Detected (NotDetected)
[2024-03-09 18:03] LABS: Basophils # (auto) 0.09 K/uL (0.00-0.20); Basophils % (auto) 0.6 %; Eosinophils % (auto) 1.4 %; Hematocrit (blood only) 45.5 % (42.0-52.0); Hemoglobin 16.1 g/dl (14.0-18.0); Immature Granulocytes # (auto) 0.04 K/uL (0.01-0.20); Immature Granulocytes % (auto) 0.3 %; Lymphocytes # (auto) 2.07 K/uL (1.20-3.40); Mean Corpuscular Hemoglobin 32.4 pg (25.0-34.0); Mean Corpuscular Hgb Conc 35.4 g/dL (32.0-36.0); Mean Corpuscular Volume 91.5 fL (80.0-100.0); Mean Platelet Volume 10.4 fL (9.4-12.4); Monocytes # (auto) 1.03 K/uL (0.11-0.59); Neutrophils # (auto) 11.37 K/uL (1.40-6.50); Neutrophils % (auto) 76.7 %; Platelet Count 251 K/uL (130-400); RDW Coefficient of Variation 12.4 % (11.5-14.5); RDW Standard Deviation 41.4 fL (36.4-46.3); Red Blood Count 4.97 M/uL (4.70-6.10)
[2024-03-09 18:09] LABS: Albumin Globulin Ratio 1.3 (0.9-2); BUN Creatinine Ratio 21.1 (10-20); Bilirubin,Total 0.4 mg/dl (0.2-1.0); Calcium 9.2 mg/dl (8.6-10.3); Creatinine Clr Calc Pharmacy 136.4 ml/min; Est GFR (African American) 120.7 ml/min; Est GFR (Non-African American) 104.2 ml/min; Globulin 3.2 gm/dl (2.5-4.0); Total Protein 7.2 gm/dl (6.0-8.3)
[2024-03-09 18:16] LABS: Troponin I High Sensitivity 5.6 pg/ml (0-20)
[2024-03-09] MEDS: OPTIRAY 320 125ml IV ONE (18:41)
--- NOTE | 2024-03-09 19:15 | CT Scan Report ---
CT angio chest dissec wo/w con CLINICAL HISTORY: throat pain radiating into neck, bloody sputum TECHNIQUE: Multidetector row helical CT of the chest was performed before and after injection of IV c ontrast. Coronal, sagittal, and MIP reformations were obtained. Automated dose lowering techniques an d/or adjustment according to patient size were utilized for this exam. Comparison: Comparison is made to chest radiograph 10/08/2022 FINDINGS: Lungs and pleura: 4 mm nodule is in the left lower lobe (image 145). Heart and pericardium: Heart size is normal. No pericardial effusion. Vessels: No aortic dissection or intramural hematoma is seen. Mediastinum and kalyani: Mild esophageal wall thickening is seen. Subcentimeter nodes are seen in the [facility] antecubital station. Chest wall and lower neck: Unremarkable. Abdomen: Unremarkable. Bones: Degenerative changes in the thoracic spine. IMPRESSION: 1. No acute abnormality and in particular no evidence of acute aortic injury. 2. Pulmonary nodule measuring 4 mm. According to Fleischner criteria, no follow-up is required in lo w risk patients, in high-risk patients, a 12 month follow-up CT can be optionally performed. ACT 112: Negative or not required by law. Electronically signed by: Dimitri Fernández M.D. 03/09/2024 7:12 PM
--- NOTE | 2024-03-09 19:40 | CT Scan Report ---
CT soft tissue neck w con CLINICAL HISTORY: severe sore throat into neck bloody sputum Technique: Axial CT images of the soft tissues of the neck were obtained following intravenous admini stration of 100 cc of Omnipaque 300. Automated dose lowering techniques and/or adjustment according t o patient size were utilized for this exam. CT DOSE: 2169.61 mGy.cm Comparison: None available at the time of this dictation. Findings: There is prominent swelling at the level of the epiglottis and aryepiglottic folds. There is prominen t narrowing of the airway at the level of the aryepiglottic folds. No enlarged lymph nodes are seen. The parotid glands, submandibular glands, and thyroid gland are unremarkable. Imaged portions of the brain parenchyma are unremarkable. The paranasal sinuses and mastoid air cell s are normal in appearance. Impression: Swelling of the epiglottis and aryepiglottic folds are seen. Prominent narrowing of the airway is see n. Findings are nonspecific but may represent infectious process involving the epiglottis and/or adria nx. Right sided reactive lymph nodes are seen. No definite drainable fluid collection. ACT 112: Negative or not required by law. Electronically signed by: Dimitri Fernández M.D. 03/09/2024 7:38 PM
[2024-03-09] MEDS: cefTRIAXone SODIUM 2,000 MG/50 ML BAG IV STA (20:17)
--- NOTE | 2024-03-09 20:50 | ENT Consultation ---
Date of Consultation March 09, 2024 Assessment & Plan (1) Supraglottitis: Plan 1. admit to ICU for close observation 2. give decadron 50 mgm now with Unasyn 3. Re scope the patient in 2 hours to make sure not progressive with the plan to take patient to the OR for airwaycontrol if a problem History of Present Illness Reason for Consultation: Patient complains of a sore throat History of Present Illness Patient has a 2 day history of a sore throat which extends down to his neck. He hs no difficulty with his breathing. He had no problems with a sore throat before this but for the past year he has had noticable phlegm in his throat. He has no cough. He does clear his throat often and did before. Patient smokes 1/2 pack of cigarettes per day. He has a history of drug abuse in the past. Patient has had nothing to eat or drink today and had very little yesterday. Allergies Allergy/AdvReac Type Severity Reaction Status Date / Time No Known Allergies Allergy Verified 03/09/24 17:48 Home Medications Medication Instructions Recorded Confirmed Type omeprazole magnesium 20 mg 20 mg PO DAILY PRN 10/08/22 03/09/24 History tablet,delayed release (Prilosec HEARTBURN/INDIGESTION OTC) glipizide 5 mg tablet 5 mg PO QAM 03/09/24 03/09/24 History Patient History Medical History Heroin abuse Surgical History No pertinent past surgical history Family History Other No family history of disorders Social History Smoking Status: Current every day smoker Tobacco Type: Cigarettes Preferred Language: Italian Communication Ability: Effective Feels Safe at Home: Yes Assistive Devices: None Physical Exam Physical Exam: On examination shows that he is in no distress regarding his airway and lisa thing. He has no stridor. Oral cavity shows no signs of inflammation or infection. I examined the nasopharynx, oropharynx and larynx. with a flexible scope. He has 2-3 edema of the epiglottis and arytenoid. It doesn't obstruct the airway but I can see the posterior glottis only. Results & Data Vital Signs (Past 12 Hours) Vital Signs Temp Pulse Pulse Resp BP BP Pulse Ox 03/09/24 19:44 98 H 19 136/92 99 03/09/24 15:49 36.0 C L 95 H 18 115/82 100 O2 Del Method 03/09/24 19:44 Room Air 03/09/24 15:49 Room Air PG Care Time/CCT Total # of Minutes Spent Total Time Spent with Patient: Total time spent is greater than 50% in coordination of care (as documented) at patient's floor/unit and/or counseling patient: [place] [address] ER DEPT VISIT HIGH LVL 5 Patient Type New History Expanded Problem Focused Exam Expanded Problem Focused Medical Decision Making High Complexity Diagnoses Supraglottitis J04.30 CPT Codes Nasopharyngoscopy - [id number] ([id number])
[2024-03-09] MEDS ORDERED: VANCOMYCIN CONSULT ACTIVE PRN (20:55)
--- NOTE | 2024-03-09 21:33 | History & Physical Report ---
Date of Service March 09, 2024 Assessment & Plan (1) Sepsis: Plan: Secondary to supraglottitis Patient currently without stridor. DM 2 on oral medications, suboptimal control as of recent hemoglobin A1c of 15 2 years ago GERD, stable on Rx ongoing tobacco abuse past history of substance abuse as per records ENT consult re: supraglottitis with potential for airway obstruction Patient already seen at the ER by Dr. Patino who recommends ICU monitoring, strict n.p.o. status, Unasyn, and high-dose IV steroid course (hydrocortisone 1 g every 8 hours as per specialist) Vancomycin in addition to Zosyn Basal bolus insulin adjusted for n.p.o. status, ISS BG goal 1 40-1 80, update hemoglobin A1c DVT prophylaxis. Lovenox subcu Full code Total critical care time was 40 minutes. Text document was generated using [employer] voice recognition software. It may contain grammatical or spelling errors. Kindly contact undersigned for clarification of any documentation item in question. History of Present Illness Chief Complaint: Sore throat, trouble swallowing Primary Care Provider: Nelson Zamarripa PA-C History obtained from patient and records. Medical history significant for DM 2 on oral medications, GERD, 2 on oral medications, ongoing tobacco abuse, past history of substance abuse as per records. Last confinement October 2022 for influenza A illness and uncontrolled DM2. Hemoglobin A1c at time of confinement was 15. Yesterday, patient noted odynophagia symptoms with sore throat and voice change. Some chills, no fever. Cough symptoms productive of clear sputum. No chest pain, no SOB, no headache. Patient consulted ER for evaluation. IV Decadron and Unasyn given for supraglottitis. Medical History as above Surgical History : Dupuytren contracture surgery Family History : DM, heart disease Personal/Social history : Half pack daily, occasional EtOH intake, disabled Allergies Allergy/AdvReac Type Severity Reaction Status Date / Time No Known Allergies Allergy Verified 03/09/24 17:48 Home Medications Medication Instructions Recorded Confirmed Type omeprazole magnesium 20 mg 20 mg PO DAILY PRN 10/08/22 03/09/24 History tablet,delayed release (Prilosec HEARTBURN/INDIGESTION OTC) glipizide 5 mg tablet 5 mg PO QAM 03/09/24 03/09/24 History Past Med/Surg History Problem List (Updated 03/10/24 @ 10:53 by Milton Hurt MD) Sepsis Acute epiglottiditis (Acute) Hepatitis C Supraglottitis Homelessness unspecified Food insecurity Methamphetamine abuse in remission Smoking Uncontrolled diabetes mellitus with hyperglycemia Peripheral neuropathy Hyperglycemia due to type 2 diabetes mellitus (Acute) Dehydration (Acute) Urinary incontinence (Acute) Acute hyponatremia (Acute) Depression (Chronic) Anxiety (Chronic) [id number] (Acute) Medical History Heroin abuse Surgical History No pertinent past surgical history Family History Other No family history of disorders Social History Smoking Status: Current every day smoker Tobacco Type: Cigarettes Cigarettes Per Day: 1/2 ppd; Hx Alcohol Use: No Hx Substance Use: Yes Last Used Substance: Days (ago) Last Used Substance Other:: Patient stated last use was 1 year ago Substance Use Type Other:: fentanyl, meth Preferred Language: Macedonian Communication Ability: Effective Glazier Structural Glass Required: No Beliefs That Will Affect Care: None Current Living Situation: Family Feels Safe at Home: Yes Safety Concerns: Feels Safe At This Time Assistive Devices: None Assistive Devices Comment: patient stated he is in need of both glasses and dentures Review of Systems Review of Systems: As per HPI, all other systems reviewed and negative Physical Exam Physical Exam: GENERAL: Slightly anxious, uncomfortable, dysphonic, negative stridor, no respiratory distress SKIN: Normal color, warm HEENT: [place] palpebral conjunctivae, no ptosis, dry buccal mucosa NECK : Supple, no tenderness CHEST : Decreased breath sounds, no tenderness HEART : RRR, no obvious murmurs ABDOMEN: Some distention, nontender EXTREMITIES : No LE swelling/tenderness, no other conspicuous deformities noted NEUROLOGIC : Coherent, no facial asymmetry, no other gross focality Results & Data Results & Data Vital Signs (Past 12 Hours) Vital Signs Temp Pulse Pulse Resp BP BP Pulse Ox 03/09/24 20:55 95 H 03/09/24 19:44 98 H 19 136/92 99 03/09/24 15:49 36.0 C L 95 H 18 115/82 100 O2 Del Method 03/09/24 20:55 03/09/24 19:44 Room Air 03/09/24 15:49 Room Air Laboratory Results Laboratory Results WBC 14.80 K/ul (4.8-10.8) H 03/09/24 17:40 RBC 4.97 M/uL (4.70-6.10) 03/09/24 17:40 Hgb 16.1 g/dl (14.0-18.0) 03/09/24 17:40 Hct 45.5 % (42.0-52.0) 03/09/24 17:40 MCV 91.5 fL (80.0-100.0) 03/09/24 17:40 MCH 32.4 pg (25.0-34.0) 03/09/24 17:40 MCHC 35.4 g/dL (32.0-36.0) 03/09/24 17:40 RDW Std Deviation 41.4 fL (36.4-46.3) 03/09/24 17:40 RDW Coeff of Mary 12.4 % (11.5-14.5) 03/09/24 17:40 Plt Count 251 K/uL (130-400) 03/09/24 17:40 MPV 10.4 fL (9.4-12.4) 03/09/24 17:40 Immature Gran % (Auto) 0.3 % 03/09/24 17:40 Neut % (Auto) 76.7 % 03/09/24 17:40 Lymph % (Auto) 14.0 % 03/09/24 17:40 [place] % (Auto) 7.0 % 03/09/24 17:40 Eos % (Auto) 1.4 % 03/09/24 17:40 Baso % (Auto) 0.6 % 03/09/24 17:40 Neut # (Auto) 11.37 K/uL (1.40-6.50) H 03/09/24 17:40 Lymph # (Auto) 2.07 K/uL (1.20-3.40) 03/09/24 17:40 [place] # (Auto) 1.03 K/uL (0.11-0.59) H 03/09/24 17:40 Eos # (Auto) 0.20 K/uL (0.00-0.50) 03/09/24 17:40 Baso # (Auto) 0.09 K/uL (0.00-0.20) 03/09/24 17:40 Immature Gran # (Auto) 0.04 K/uL (0.01-0.20) 03/09/24 17:40 Sodium 139 mmol/L (136-145) 03/09/24 17:40 Potassium 4.0 mmol/L (3.5-5.1) 03/09/24 17:40 Chloride 106 mmol/L (98-107) 03/09/24 17:40 Carbon Dioxide 25 mmol/L (21-32) 03/09/24 17:40 Anion Gap 8 (3-11) 03/09/24 17:40 BUN 16 mg/dl (6-23) 03/09/24 17:40 Creatinine 0.76 mg/dl (0.6-1.4) 03/09/24 17:40 Est Cr Clr Drug Dosing 136.4 ml/min 03/09/24 17:40 Est GFR ( Amer) 120.7 ml/min 03/09/24 17:40 Est GFR (Non-Af Amer) 104.2 ml/min 03/09/24 17:40 BUN/Creatinine Ratio 21.1 (10-20) H 03/09/24 17:40 Glucose 142 mg/dl (70-99(Fasting)) H 03/09/24 17:40 Calcium 9.2 mg/dl (8.6-10.3) 03/09/24 17:40 Magnesium 2.0 mg/dl (1.7-2.4) 03/09/24 17:40 Total Bilirubin 0.4 mg/dl (0.2-1.0) 03/09/24 17:40 AST 41 U/L (13-39) H 03/09/24 17:40 ALT 54 U/L (7-52) H 03/09/24 17:40 Alkaline Phosphatase 113 U/L (34-104) H 03/09/24 17:40 Troponin I High Sens 5.6 pg/ml (0-20) 03/09/24 17:40 Total Protein 7.2 gm/dl (6.0-8.3) 03/09/24 17:40 Albumin 4.0 gm/dl (3.4-5.0) 03/09/24 17:40 Globulin 3.2 gm/dl (2.5-4.0) 03/09/24 17:40 Albumin/Globulin Ratio 1.3 (0.9-2) 03/09/24 17:40 Adenovirus (PCR) Not Detected (NotDetected) 03/09/24 16:55 B. pertussis DNA (PCR) Not Detected (NotDetected) 03/09/24 16:55 B.parapertussis DNA PCR Not Detected (NotDetected) 03/09/24 16:55 C. pneumoniae DNA (PCR) Not Detected (NotDetected) 03/09/24 16:55 Coronavirus OC43 (PCR) Not Detected (NotDetected) 03/09/24 16:55 Coronavirus HKU1 (PCR) Not Detected (NotDetected) 03/09/24 16:55 Coronavirus 229E (PCR) Not Detected (NotDetected) 03/09/24 16:55 SARS-CoV-2 (PCR) Not Detected (NotDetected) 03/09/24 16:55 Coronavirus NL63 (PCR) Not Detected (NotDetected) 03/09/24 16:55 Monoscreen Negative (Negative) 03/09/24 17:40 Human Metapneumovir PCR Not Detected (NotDetected) 03/09/24 16:55 Influenza Type A (PCR) Not Detected (NotDetected) 03/09/24 16:55 Influenza Type B (PCR) Not Detected (NotDetected) 03/09/24 16:55 M. pneumoniae (PCR) Not Detected (NotDetected) 03/09/24 16:55 Parainfluenza 1 (PCR) Not Detected (NotDetected) 03/09/24 16:55 Parainfluenza 2 (PCR) Not Detected (NotDetected) 03/09/24 16:55 Parainfluenza 3 (PCR) Not Detected (NotDetected) 03/09/24 16:55 Parainfluenza 4 (PCR) Not Detected (NotDetected) 03/09/24 16:55 RSV (PCR) Not Detected (NotDetected) 03/09/24 16:55 Entero/Rhino (PCR) Not Detected (NotDetected) 03/09/24 16:55 Group A Strep (PCR) NOT DETECTED (NotDetected) 03/09/24 16:15 Impressions Chest CTA 03/09/24 17:40 CT angio chest dissec wo/w con CLINICAL HISTORY: throat pain radiating into neck, bloody sputum TECHNIQUE: Multidetector row helical CT of the chest was performed before and after injection of IV contrast. Coronal, sagittal, and MIP reformations were obtained. Automated dose lowering techniques and/or adjustment according to patient size were utilized for this exam. Comparison: Comparison is made to chest radiograph 10/08/2022 FINDINGS: Lungs and pleura: 4 mm nodule is in the left lower lobe (image 145). Heart and pericardium: Heart size is normal. No pericardial effusion. Vessels: No aortic dissection or intramural hematoma is seen. Mediastinum and kalyani: Mild esophageal wall thickening is seen. Subcentimeter nodes are seen in the right antecubital station. Chest wall and lower neck: Unremarkable. Abdomen: Unremarkable. Bones: Degenerative changes in the thoracic spine. IMPRESSION: 1. No acute abnormality and in particular no evidence of acute aortic injury. 2. Pulmonary nodule measuring 4 mm. According to Fleischner criteria, no follow-up is required in low risk patients, in high-risk patients, a 12 month follow-up CT can be optionally performed. ACT 112: Negative or not required by law. Electronically signed by: Dimitri Fernández M.D. 03/09/2024 7:[address] Tissue Neck CT 03/09/24 17:40 CT soft tissue neck w con CLINICAL HISTORY: severe sore throat into neck bloody sputum Technique: Axial CT images of the soft tissues of the neck were obtained following intravenous administration of 100 cc of Omnipaque 300. Automated dose lowering techniques and/or adjustment according to patient size were utilized for this exam. CT DOSE: 2169.61 mGy.cm Comparison: None available at the time of this dictation. Findings: There is prominent swelling at the level of the epiglottis and aryepiglottic folds. There is prominent narrowing of the airway at the level of the aryepiglottic folds. No enlarged lymph nodes are seen. The parotid glands, submandibular glands, and thyroid gland are unremarkable. Imaged portions of the brain parenchyma are unremarkable. The paranasal sinuses and mastoid air cells are normal in appearance. Impression: Swelling of the epiglottis and aryepiglottic folds are seen. Prominent narrowing of the airway is seen. Findings are nonspecific but may represent infectious process involving the epiglottis and/or larynx. Right sided reactive lymph nodes are seen. No definite drainable fluid collection. ACT 112: Negative or not required by law. Electronically signed by: Dimitri Fernández M.D. 03/09/2024 7:38 PM Diagnostic Findings EKG as per my interpretation : Rate 90, NSR, normal axis, no ischemia
[2024-03-09] MEDS: AMPICILLIN/SULBACTAM SOD 3,000 MG in SODIUM CHLOR 0.9% MINI-B 100 ML IV STA (21:36)
[2024-03-09] MEDS ORDERED: PROMETHAZINE HCL 6.25 MG in SODIUM CHLORIDE 0.9% 50 ML IV PRN (21:41)
[2024-03-09] MEDS ORDERED: LORazepam 0.25 MG in SYRINGE 0.125 ML IV PRN (21:41)
[2024-03-09] MEDS ORDERED: MoRPHine SULFATE 2 MG/ML CARP IV PRN (21:42)
[2024-03-09] MEDS ORDERED: NICOTINE 14 MG/24 HR PATCH TD SCH (21:50)
[2024-03-09] MEDS: SODIUM CHLORIDE 0.9% 1,000 ML IV STA (22:01)
[2024-03-09] MEDS: LORazepam 0.25 MG in SYRINGE 0.125 ML IV STA (22:02)
[2024-03-09] MEDS: NICOTINE 14 MG/24 HR PATCH TD STA (22:03)
[2024-03-09] MEDS: VANCOMYCIN HCL 2,500 MG in SODIUM CHLORIDE 0.9% 500 ML IV STA (22:04)
[2024-03-09] MEDS: ACETAMINOPHEN 1,000 MG/100 ML VIAL IV PRN (22:05)
--- NOTE | 2024-03-09 23:09 | History & Physical Bridge Note ---
Date of Service March 09, 2024 History & Physical Bridge Note I have examined the patient, reviewed the History & Physical and in the interval since the performance of the History & Physical I have noted the following changes of clinical significance: The patient notices an improvement since last seen in the ER I examined the patient with a flexible laryngoscope and there was less swelling of the epiglottis and aryepiglottic folds. I still can only see the posterior glottis. Plan: will observe in the ICU overnight and re scope in the morning
--- NOTE | 2024-03-09 23:15 | Critical Care Consultation ---
Date of Consultation March 09, 2024 Assessment & Plan (1) Supraglottitis: Patient was swelling of the epiglottis and air glottic folds with prominent narrowing of the airway with findings suggestive of infectious process involving the epiglottis and Larynex. Patient evaluated by ENT showing grade 3 Edema of epiglottis and arytenoid. Reevaluated at 2300, with no worsening. - Admitted to ICU overnight for close observation - Per ENT management, undergoing treatment with high-dose steroids and Unasyn -Received 50 mg Decadron - Blood cultures pending - NPO (2) Uncontrolled diabetes mellitus with hyperglycemia: Last hemoglobin A1c 15. Currently hyperglycemic with BSG 220. Normally takes glipizide but unsure of compliance. Will proceed with sliding scale as patient is NPO. ICU hyperglycemic protocol. (3) Methamphetamine abuse in remission: Stable. Reports last use 1 year ago. (4) Smoking: Reports smoking 1 PPD. No pulmonary history. Nicotine patch. Encourage cessation. (5) Hepatitis C: Reports being diagnosed with a last incarceration. Patient reports refusing therapy at that time. History of Present Illness Attending Physician: Hermes Pagan MD History of Present Illness Patient is a 53-year-old male with past medical history of DM type II (u ncontrolled), IV drug abuse, hep C, current smoker 1 PPD, who presented to the emergency department earlier this evening with complaints of 2 days sore throat with trouble clearing phlegm. Patient underwent CT soft tissue of the neck which showed prominent swelling at level of epiglottis and aryepiglottic folds with narrowing of the airway. Patient was evaluated in the emergency department by ENT with bronchoscope He was found to have grade 3 edema of the epiglottis and arytenoid, nonobstructive. He was given high-dose glucocorticoid and broad- spectrum antibiotics. Patient now being admitted to ICU for close monitoring overnight. Allergies Allergy/AdvReac Type Severity Reaction Status Date / Time No Known Allergies Allergy Verified 03/09/24 17:48 Home Medications Medication Instructions Recorded Confirmed Type omeprazole magnesium 20 mg 20 mg PO DAILY PRN 10/08/22 03/09/24 History tablet,delayed release (Prilosec HEARTBURN/INDIGESTION OTC) glipizide 5 mg tablet 5 mg PO QAM 03/09/24 03/09/24 History Patient History Medical History Heroin abuse Surgical History No pertinent past surgical history Family History Other No family history of disorders Social History Smoking Status: Current every day smoker Tobacco Type: Cigarettes Cigarettes Per Day: 1/2 ppd; Hx Alcohol Use: No Hx Substance Use: Yes Last Used Substance: Days (ago) Last Used Substance Other:: Patient stated last use was 1 year ago Substance Use Type Other:: fentanyl, meth Preferred Language: Malay Communication Ability: Effective Retread Technician Required: No Beliefs That Will Affect Care: None Current Living Situation: Family Feels Safe at Home: Yes Safety Concerns: Feels Safe At This Time Assistive Devices: None Assistive Devices Comment: patient stated he is in need of both glasses and dentures Review of Systems Review of Systems: Reports due to a sore throat with trouble clearing fluid. Able to swallow and talk in complete sentences without respiratory distress. He denies headache, dizziness, syncopal events, shortness of breath, chest pain or palpitations, abdominal pain, nausea vomiting or diarrhea. Patient does report swelling in the left hand ongoing for the past month, for which she was taking ibuprofen. He also reports ongoing poor eyesight without acute change in vision. Physical Exam Constitutional: cooperative and comfortable Eyes: PERRL, conjunctivae normal, anicteric sclerae ENMT: external ear and nose normal, oropharynx normal Neck: trachea midline, no thyromegaly Respiratory: normal respiratory effort, lungs clear to auscultation Cardiovascular: RRR, no murmur, no edema Heart Sounds: normal S1 and normal S2 Extremities: no edema Gastrointestinal (Abdomen): normal bowel sounds, soft, nontender, no he patosplenomegaly Musculoskeletal: no cyanosis or clubbing, extremities motor strength 5/5 Skin: no rashes, warm and dry Neurologic: PERRL, EOMI, accommodation nl, no face palsy, no dysarthria Psychiatric: A+Ox3, euthymic affect Results & Data Results & Data Vital Signs (Past 12 Hours) Vital Signs Temp Pulse Pulse Resp BP BP Pulse Ox 03/09/24 22:21 83 22 96 03/09/24 22:00 96 H 23 99 03/09/24 21:57 86 22 96 03/09/24 21:42 86 19 96 03/09/24 21:30 90 21 135/79 99 03/09/24 21:15 83 20 97 03/09/24 21:00 98 03/09/24 20:57 95 H 16 97 03/09/24 20:55 95 H 03/09/24 19:44 98 H 19 136/92 99 03/09/24 15:49 36.0 C L 95 H 18 115/82 100 O2 Del Method 03/09/24 22:21 03/09/24 22:00 03/09/24 21:57 03/09/24 21:42 03/09/24 21:30 03/09/24 21:15 03/09/24 21:00 Room Air 03/09/24 20:57 03/09/24 20:55 03/09/24 19:44 Room Air 03/09/24 15:49 Room Air Coding Level of Care Code 39097 IN/OBS CONSULT LVL 2,35M Diagnoses Supraglottitis J04.30 Uncontrolled diabetes mellitus with hyperglycemia E11.65 Methamphetamine abuse in remission F15.11 Smoking F17.200 Hepatitis C B19.20 Time Spent (min) 42
[2024-03-09] MEDS ORDERED: GLUCOSE 40% GEL 15 GM TUBE PO PRN ×2 (23:18→23:29)
[2024-03-09] MEDS ORDERED: PHARMACY GLYCEMIC MGMT CONSULT PRN (23:18)
[2024-03-09] MEDS ORDERED: GLUCOSE 10 TAB/TUBE PO PRN ×2 (23:18→23:29)
[2024-03-09] MEDS ORDERED: DEXTROSE 50% 50 ML SYRINGE IV PRN ×2 (23:18→23:29)
[2024-03-09] MEDS ORDERED: GLUCAGON FOR INJ 1 MG VIAL SQ PRN ×2 (23:18→23:29)
[2024-03-09] MEDS ORDERED: CARBOHYDRATES FOR HYPOGLYCEMIA PO PRN ×2 (23:18→23:29)
[2024-03-09] MEDS ORDERED: LANTUS PER UNIT CHARGE SQ SCH (23:29)
[2024-03-09] MEDS ORDERED: INSULIN ASPART PER UNIT CHARGE SC SCH (23:29)
[2024-03-09] MEDS: INSULIN ASPART PER UNIT CHARGE SC SCH (23:39)
[2024-03-10] MEDS ORDERED: HYDROCORTISONE SOD SUCCINATE 100 MG/2 ML VIAL IV SCH (04:00)
[2024-03-10] MEDS: INSULIN ASPART PER UNIT CHARGE SC SCH (04:15)
[2024-03-10] MEDS: SODIUM CHLORIDE 0.9% IV SCH (04:16)
[2024-03-10] MEDS: AMPICILLIN/SULBACTAM SOD 3,000 MG in SODIUM CHLOR 0.9% MINI-B 100 ML IV SCH (04:16)
[2024-03-10] MEDS: HYDROCORTISONE SOD IV SCH (04:16)
[2024-03-10 05:03] LABS: Hematocrit (blood only) 45.4 % (42.0-52.0); Hemoglobin 16.2 g/dl (14.0-18.0); Mean Corpuscular Hemoglobin 32.7 pg (25.0-34.0); Mean Corpuscular Hgb Conc 35.7 g/dL (32.0-36.0); Mean Corpuscular Volume 91.5 fL (80.0-100.0); Mean Platelet Volume 10.4 fL (9.4-12.4); Platelet Count 246 K/uL (130-400); RDW Coefficient of Variation 12.3 % (11.5-14.5); RDW Standard Deviation 41.1 fL (36.4-46.3); Red Blood Count 4.96 M/uL (4.70-6.10); White Blood Count 14.79 K/ul (4.8-10.8)
[2024-03-10 05:13] LABS: BUN Creatinine Ratio 24.6 (10-20); Calcium 8.5 mg/dl (8.6-10.3); Creatinine Clr Calc Pharmacy 150.3 ml/min; Est GFR (African American) 125.6 ml/min; Est GFR (Non-African American) 108.4 ml/min; Potassium 4.4 mmol/L (3.5-5.1)
[2024-03-10 05:50] LABS: Basophils # (auto) 0.02 K/uL (0.00-0.20); Basophils % (auto) 0.1 %; Immature Granulocytes # (auto) 0.07 K/uL (0.01-0.20); Immature Granulocytes % (auto) 0.5 %; Lymphocytes # (auto) 0.77 K/uL (1.20-3.40); Lymphocytes % (auto) 5.2 %; Monocytes % (auto) 0.7 %; Neutrophils # (auto) 13.83 K/uL (1.40-6.50); Neutrophils % (auto) 93.5 %
[2024-03-10] MEDS: VANCOMYCIN HCL 1,250 MG in SODIUM CHLORIDE 0.9% 250 ML IV SCH (05:58)
[2024-03-10] MEDS: LANTUS PER UNIT CHARGE SC ONE (07:57)
[2024-03-10 08:08] LABS: Estimated Average Glucose 200 mg/dl; Hemoglobin A1C 8.6 % (4.5-5.6)
--- NOTE | 2024-03-10 08:23 | History & Physical Bridge Note ---
Date of Service March 10, 2024 History & Physical Bridge Note I have examined the patient, reviewed the History & Physical and in the interval since the performance of the History & Physical I have noted the following changes of clinical significance: Patient is feeling much better with very little pain now. No airway problems during the night On examination with a flexible scope there is less swelling of the epiglottis and aryepiglottic folds. I still can only see the posterior glottis Plan: Patient will remain in the ICU under observation and I will re scope him this afternoon to see if he has improved further
[2024-03-10] MEDS ORDERED: ENOXAPARIN INJ 40 MG/0.4 ML SYR SQ SCH (09:00)
--- NOTE | 2024-03-10 09:24 | Critical Care Progress Note ---
Date of Service March 10, 2024 Assessment & Plan (1) Supraglottitis: Plan: Patient was swelling of the epiglottis and air glottic folds with prominent narrowing of the airway with findings suggestive of infectious process involving the epiglottis and Larynex. Patient evaluated by ENT showing grade 3 Edema of epiglottis and arytenoid. Reevaluated at 2300, with no worsening. - Admitted to ICU overnight for close observation - Per ENT management, undergoing treatment with high-dose steroids and Unasyn -10 mg Decadron IV today and then 4 mg next 3 days - Blood cultures pending - NPO Patient is ambulatory, ordered to ambulate every shift. At risk for possible emergent airway intervention considered low risk for venous thromboembolism and given ambulatory state will not do chemoprophylaxis. (2) Uncontrolled diabetes mellitus with hyperglycemia: Plan: Last hemoglobin A1c 15. Currently hyperglycemic with BSG 220. Normally takes glipizide but unsure of compliance. Will proceed with sliding scale as patient is NPO. ICU hyperglycemic protocol. (3) Methamphetamine abuse in remission: Plan: Stable. Reports last use 1 year ago. (4) Smoking: Plan: Reports smoking 1 PPD. No pulmonary history. Nicotine patch. Encourage cessation. (5) Hepatitis C: Plan: Reports being diagnosed with a last incarceration. Patient reports refusing therapy at that time. Admission and Anticipated Discharge Date Admission Date: March 09, 2024 Subjective Denies significant pain, feels significantly better. Reports that he is hungry, ENT had evaluated by bedside and authorize liquid diet at this point. Physical Exam Physical Exam: General: Alert. nontoxic. Skin: Warm, dry, Head: Atraumatic Ears, nose, mouth and throat: airway patent Cardiovascular: Normal peripheral perfusion Respiratory: no respiratory distress Gastrointestinal: Non distended Musculoskeletal: No deformity Results & Data Results & Data Vital Signs (Past 12 Hours) Vital Signs Temp Pulse Pulse Resp BP BP Pulse Ox 03/10/24 09:04 84 14 117/65 97 03/10/24 07:06 79 16 136/81 96 03/10/24 06:12 83 96 03/10/24 06:00 138/78 03/10/24 05:51 88 11 L 97 03/10/24 05:03 95 H 17 97 03/10/24 05:00 133/81 03/10/24 04:57 85 8 L 96 03/10/24 04:03 36.4 C L 87 13 126/78 96 03/10/24 03:06 82 25 H 94 03/10/24 02:06 85 12 93 03/10/24 01:00 129/72 03/10/24 01:00 88 15 96 03/10/24 00:03 89 20 97 03/10/24 00:00 90 03/09/24 23:42 85 18 97 03/09/24 23:29 03/09/24 23:27 89 23 97 03/09/24 23:12 87 16 97 03/09/24 23:06 95 H 19 99 03/09/24 23:00 145/93 H 03/09/24 22:50 37.1 C 90 20 150/83 H 99 03/09/24 22:21 83 22 96 03/09/24 22:00 96 H 23 99 03/09/24 21:57 86 22 96 03/09/24 21:42 86 19 96 03/09/24 21:30 90 21 135/79 99 Pulse Ox O2 Del Method O2 Del Method 03/10/24 09:04 Room Air 03/10/24 07:06 Room Air 03/10/24 06:12 03/10/24 06:00 03/10/24 05:51 03/10/24 05:03 03/10/24 05:00 03/10/24 04:57 03/10/24 04:03 03/10/24 03:06 03/10/24 02:06 03/10/24 01:00 03/10/24 01:00 03/10/24 00:03 03/10/24 00:00 03/09/24 23:42 03/09/24 23:29 99 Room Air 03/09/24 23:27 03/09/24 23:12 03/09/24 23:06 03/09/24 23:00 03/09/24 22:50 Room Air 03/09/24 22:21 03/09/24 22:00 03/09/24 21:57 03/09/24 21:42 03/09/24 21:30 Critical Care Results & Data Vital Signs (Past 12 Hours) Vital Signs Temp Pulse Pulse Resp BP BP Pulse Ox 03/10/24 09:04 84 14 117/65 97 03/10/24 07:06 79 16 136/81 96 03/10/24 06:12 83 96 03/10/24 06:00 138/78 03/10/24 05:51 88 11 L 97 03/10/24 05:03 95 H 17 97 03/10/24 05:00 133/81 03/10/24 04:57 85 8 L 96 03/10/24 04:03 36.4 C L 87 13 126/78 96 03/10/24 03:06 82 25 H 94 03/10/24 02:06 85 12 93 03/10/24 01:00 129/72 03/10/24 01:00 88 15 96 03/10/24 00:03 89 20 97 03/10/24 00:00 90 03/09/24 23:42 85 18 97 03/09/24 23:29 03/09/24 23:27 89 23 97 03/09/24 23:12 87 16 97 03/09/24 23:06 95 H 19 99 03/09/24 23:00 145/93 H 03/09/24 22:50 37.1 C 90 20 150/83 H 99 03/09/24 22:21 83 22 96 03/09/24 22:00 96 H 23 99 03/09/24 21:57 86 22 96 03/09/24 21:42 86 19 96 03/09/24 21:30 90 21 135/79 99 Pulse Ox O2 Del Method O2 Del Method 03/10/24 09:04 Room Air 03/10/24 07:06 Room Air 03/10/24 06:12 03/10/24 06:00 03/10/24 05:51 03/10/24 05:03 03/10/24 05:00 03/10/24 04:57 03/10/24 04:03 03/10/24 03:06 03/10/24 02:06 03/10/24 01:00 03/10/24 01:00 03/10/24 00:03 03/10/24 00:00 03/09/24 23:42 03/09/24 23:29 99 Room Air 03/09/24 23:27 03/09/24 23:12 03/09/24 23:06 03/09/24 23:00 03/09/24 22:50 Room Air 03/09/24 22:21 03/09/24 22:00 03/09/24 21:57 03/09/24 21:42 03/09/24 21:30 Lab & Micro Results (Past 24 Hours) RBC 4.96 M/uL (4.70-6.10) 03/10/24 WBC 14.79 K/ul (4.8-10.8) H 03/10/24 Hgb 16.2 g/dl (14.0-18.0) 03/10/24 Hct 45.4 % (42.0-52.0) 03/10/24 MCV 91.5 fL (80.0-100.0) 03/10/24 MCH 32.7 pg (25.0-34.0) 03/10/24 MCHC 35.7 g/dL (32.0-36.0) 03/10/24 RDW Standard Deviation 41.1 fL (36.4-46.3) 03/10/24 RDW Coefficient of Variation 12.3 % (11.5-14.5) 03/10/24 Plt Count 246 K/uL (130-400) 03/10/24 MPV 10.4 fL (9.4-12.4) 03/10/24 Neutrophils (%) (Auto) 93.5 % 03/10/24 Lymphocytes (%) (Auto) 5.2 % 03/10/24 Monocytes # (Auto) 0.10 K/uL (0.11-0.59) L 03/10/24 Eosinophils # (Auto) 0.00 K/uL (0.00-0.50) 03/10/24 Immature Granulocyte % (Auto) 0.5 % 03/10/24 Neutrophils # (Auto) 13.83 K/uL (1.40-6.50) H 03/10/24 Lymphocytes # (Auto) 0.77 K/uL (1.20-3.40) L 03/10/24 Monocytes # (Auto) 0.10 K/uL (0.11-0.59) L 03/10/24 Eosinophils # (Auto) 0.00 K/uL (0.00-0.50) 03/10/24 Basophils # (Auto) 0.02 K/uL (0.00-0.20) 03/10/24 Immature Granulocyte # (Auto) 0.07 K/uL (0.01-0.20) 4 Na 136 mmol/L (136-145) 03/10/24 K 4.4 mmol/L (3.5-5.1) 03/10/24 Cl 107 mmol/L (98-107) 03/10/24 CO2 22 mmol/L (21-32) 03/10/24 Anion Gap 7 (3-11) 03/10/24 BUN 17 mg/dl (6-23) 03/10/24 Creatinine 0.69 mg/dl (0.6-1.4) 03/10/24 Estimated GFR ( Amer) 125.6 ml/min 03/10/24 Estimated GFR (Non-Af Amer) 108.4 ml/min 03/10/24 BUN/Creatinine Ratio 24.6 (10-20) H 03/10/24 Glu 267 mg/dl (70-99(Fasting)) H 03/10/24 Ca 8.5 mg/dl (8.6-10.3) L 03/10/24 Total Bilirubin 0.4 mg/dl (0.2-1.0) 03/09/24 AST 41 U/L (13-39) H 03/09/24 ALT 54 U/L (7-52) H 03/09/24 Alkaline Phosphatase 113 U/L (34-104) H 03/09/24 TP 7.2 gm/dl (6.0-8.3) 03/09/24 Albumin 4.0 gm/dl (3.4-5.0) 03/09/24 Globulin 3.2 gm/dl (2.5-4.0) 03/09/24 Albumin/Globulin Ratio 1.3 (0.9-2) 03/09/24 Mg 2.0 mg/dl (1.7-2.4) 03/09/24 17:40 Calcium Level 8.5 mg/dl (8.6-10.3) L 03/10/24 04:36 Diagnostic Findings (Past 24 Hours) Chest CTA 03/09/24 17:40 CT angio chest dissec wo/w con CLINICAL HISTORY: throat pain radiating into neck, bloody sputum TECHNIQUE: Multidetector row helical CT of the chest was performed before and after injection of IV contrast. Coronal, sagittal, and MIP reformations were obtained. Automated dose lowering techniques and/or adjustment according to pa tient size were utilized for this exam. Comparison: Comparison is made to chest radiograph 10/08/2022 FINDINGS: Lungs and pleura: 4 mm nodule is in the left lower lobe (image 145). Heart and pericardium: Heart size is normal. No pericardial effusion. Vessels: No aortic dissection or intramural hematoma is seen. Mediastinum and kalyani: Mild esophageal wall thickening is seen. Subcentimeter nodes are seen in the right antecubital station. Chest wall and lower neck: Unremarkable. Abdomen: Unremarkable. Bones: Degenerative changes in the thoracic spine. IMPRESSION: 1. No acute abnormality and in particular no evidence of acute aortic injury. 2. Pulmonary nodule measuring 4 mm. According to Fleischner criteria, no follow-up is required in low risk patients, in high-risk patients, a 12 month follow-up CT can be optionally performed. ACT 112: Negative or not required by law. Electronically signed by: Dimitri Fernández M.D. 03/09/2024 7:12 PM Soft Tissue Neck CT 03/09/24 17:40 CT soft tissue neck w con CLINICAL HISTORY: severe sore throat into neck bloody sputum Technique: Axial CT images of the soft tissues of the neck were obtained following intravenous administration of 100 cc of Omnipaque 300. Automated dose lowering techniques and/or adjustment according to patient size were utilized for this exam. CT DOSE: 2169.61 mGy.cm Comparison: None available at the time of this dictation. Findings: There is prominent swelling at the level of the epiglottis and aryepiglottic folds. There is prominent narrowing of the airway at the level of the aryepiglottic folds. No enlarged lymph nodes are seen. The parotid glands, submandibular glands, and thyroid gland are unremarkable. Imaged portions of the brain parenchyma are unremarkable. The paranasal sinuses and mastoid air cells are normal in appearance. Impression: Swelling of the epiglottis and aryepiglottic folds are seen. Prominent narrowing of the airway is seen. Findings are nonspecific but may represent infectious process involving the epiglottis and/or larynx. Right sided reactive lymph nodes are seen. No definite drainable fluid collection. ACT 112: Negative or not required by law. Electronically signed by: Dimitri Fernández M.D. 03/09/2024 7:38 PM I & O Totals 24 Hours 03/09/24 03/10/24 03/11/24 06:59 06:59 06:59 Intake Total 970 / 970 1275 / 1275 Output Total 630 / 630 Balance 340 / 340 1275 / 1275 Cumulative 03/09/24 15:29 thru 03/10/24 09:19 Intake Total 2245 Output Total 630 Balance 1615 RT Ventilator Mngmt (Last Documented) Ventilator Ordered Settings Respiratory Rate 14 03/10/24 09:04 Ventilator - PT Measurements Respiratory Rate 14 Coding Level of Care Code 25501 SUB INP/OBS CARE 3/50MIN Diagnoses Supraglottitis J04.30 Uncontrolled diabetes mellitus with hyperglycemia E11.65 Methamphetamine abuse in remission F15.11 Smoking F17.200 Hepatitis C B19.20
[2024-03-10] MEDS: NICOTINE 14 MG/24 HR PATCH TD SCH (09:42)
[2024-03-10] MEDS: PANTOprazole 40 MG in SYRINGE 0 ML IV SCH (11:04)
--- NOTE | 2024-03-10 11:06 | Pharmacy Report ---
Pharmacy Glycemic Short Note 2 - Date of Service March 10, 2024 - Glycemic Short BSG Results (Last 24 hours): 03/09/24 03/09/24 03/10/24 17:40 23:09 04:05 Glucose 142 H POC Glucose 224 H 235 H 03/10/24 03/10/24 04:36 07:51 Glucose 267 H POC Glucose 214 H OUTPATIENT ANTIDIABETIC REGIMEN: * Glipizide * HbA1c 8.6% on 03/09/24 ASSESSMENT: * 53 yo M w T2DM admitted to ICU for possible need for aggressive airway management 2nd supraglottitis and stated on very high dose steroids. NPO at this time * BSG's >200 mg/dL x3 - will tighten Novolog to close to weight-based severe stress estimate * Will initiate Lantus, although will be conservative w dose given NPO and unknown BSG response to long-acting insulin at this time PLAN FOR INPATIENT GLYCEMIC CONTROL: * Hold outpatient oral diabetes medications * Basal insulin * Lantus 20 units SQ x1 now. Additional 10 units tonight if BSG > 180 mg/dL * Bolus insulin * NovoLog per scale ACHS or Q6hrs while NPO * Goal Range: Low 140 mg/dL - High 180 mg/dL * Correction Factor: 20 mg/dL/unit * Nutritional / Prandial insulin per carb ratio of 1 unit per 6 grams CHO consumed
--- NOTE | 2024-03-10 11:26 | Pharmacy Report ---
Pharmacy PK ABX Note - Date of Service March 10, 2024 - Assessment and Plan Assessment * 53 year old M receiving Unasyn and vancomycin for treatment of supraglottitis * Pertinent microbiologic data includes: blood cultures pending Plan Vancomycin * Loading dose: 2500 mg IV x 1 * Maintenance dose: 1250 mg IV every 12 hours * Regimen is predicted to achieve target AUC/FREDDIE of 400-600 mg/L.hr * Random level ordered for: 6/4 AM Pharmacy will continue to follow and will adjust dose/frequency as necessary. Thank you. Pharmacy has transitioned to AUC monitoring for vancomycin. AUC/FREDDIE is the preferred PK/PD target and is associated with decreased risk of nephrotoxicity compared to traditional trough targets.
[2024-03-10] MEDS: dexAMETHasone 10 MG in SYRINGE 0 ML IV ONE (12:00)
--- NOTE | 2024-03-10 16:56 | Hospitalist Progress Note ---
Date of Service March 10, 2024 Assessment & Plan (1) Supraglottitis: (2) Uncontrolled diabetes mellitus with hyperglycemia: (3) Smoking: (4) Methamphetamine abuse in remission: (5) Hepatitis C: Plan 53 year old male with uncontrolled DM, h/o IV drug abuse, Hep C, active smoker who presented to the ED / with 2 day history of sore throat with trouble clearing the phlegm. Patient underwent CT soft tissue of the neck which showed prominent swelling at level of epiglottis and aryepiglottic folds with narrowing of the airway. He was evaluated in the emergency department by ENT with bronchoscope. He was found to have grade 3 edema of the epiglottis and arytenoid, nonobstructive. He was given high-dose glucocorticoid and broad- spectrum antibiotics and admitted to ICU for close monitoring. CT soft tissue neck- Swelling of the epiglottis and aryepiglottic folds are seen. Prominent narrowing of the airway is seen. Findings are nonspecific but may represent infectious process involving the epiglottis and/or larynx. Right sided reactive lymph nodes are seen. No definite drainable fluid collection. CTA chest- 1. No acute abnormality and in particular no evidence of acute aortic injury. 2. Pulmonary nodule measuring 4 mm. According to Fleischner criteria, no follow-up is required in low risk patients, in high-risk patients, a 12 month follow-up CT can be optionally performed. Supraglottitis- CT reviewed as above. RVP negative. Seen by ENT. Improved with high dose of decadron and empiric iv Vanc/Unasyn. Continues to improve- no dyspnea or stridors and voice improving. ENT planning for repeat scope later today. Remains in ICU for closer monitoring. Further management per ENT and marketing editor. Follow blood culture results. Uncontrolled DM-2 with hyperglycemia- A1c 15. Insulin management per marketing editor per ICU protocol Methamphetamine use in remission Tobacco abuse- states smokes 1/2 PPD. On nicoderm patch. Recommended quitting Hepatitis C- diagnosed with last incarceration. reports refusing therapy at that time. Recommended f/u with GI as OP if he wishes further evaluation and treatment. Elevated LFTs- mild elevation noted. Could be from above. DVT ppx- per marketing editor Dispo- Pending medical stability. Remain in ICU for closer monitoring Time spent- approx 35 mins Admission and Anticipated Discharge Date Admission Date: March 09, 2024 Subjective Patient was seen and examined at bedside. He feels much better. Currently denies any dyspnea, stridor, and now able to speak. No fever or chills. No similar episodes before. Denies sick contacts. Review of Systems Review of Systems: All systems reviewed & are unremarkable except as noted in Subjective Physical Exam Physical Exam: General: Lying comfortably in bed, not in distress, on room air HEENT: EOMI, DAR, MMM Chest: Clear breath sounds bilaterally, no wheezes or crackles CVS: Regular rate and rhythm, normal heart sounds, no murmur Abdomen: Soft, non tender, not distended, normal bowel sounds Neuro: Awake, alert, oriented, conversing well, non focal Extremities: No cyanosis, clubbing or edema Results & Data Results & Data Vital Signs (Past 12 Hours) Vital Signs Temp Pulse Pulse Pulse Resp BP BP 03/10/24 16:00 36.6 C 81 18 128/73 03/10/24 14:38 80 15 115/59 L 03/10/24 14:00 81 15 151/91 H 03/10/24 13:00 80 12 118/65 03/10/24 11:25 36.5 C 86 16 03/10/24 10:00 79 12 125/72 03/10/24 09:04 84 14 117/65 03/10/24 08:00 73 16 135/88 03/10/24 08:00 36.5 C 03/10/24 07:06 79 16 136/81 03/10/24 06:12 83 03/10/24 06:00 138/78 03/10/24 05:51 88 11 L 03/10/24 05:03 95 H 17 03/10/24 05:00 133/81 03/10/24 04:57 85 8 L BP Pulse Ox O2 Del Method 03/10/24 16:00 98 Room Air 03/10/24 14:38 97 Room Air 03/10/24 14:00 99 Room Air 03/10/24 13:00 98 Room Air 03/10/24 11:25 120/43 L 99 Room Air 03/10/24 10:00 97 Room Air 03/10/24 09:04 97 Room Air 03/10/24 08:00 98 Room Air 03/10/24 08:00 03/10/24 07:06 96 Room Air 03/10/24 06:12 96 03/10/24 06:00 03/10/24 05:51 97 03/10/24 05:03 97 03/10/24 05:00 03/10/24 04:57 96 Laboratory Results Short CBC 03/09/24 03/10/24 Range/Units 17:40 04:36 WBC 14.80 H 14.79 H (4.8-10.8) K/ul Hgb 16.1 16.2 (14.0-18.0) g/dl Hct 45.5 45.4 (42.0-52.0) % Plt Count 251 246 (130-400) K/uL BMP 03/09/24 03/10/24 17:40 04:36 Sodium 139 136 Potassium 4.0 4.4 Chloride 106 107 Carbon Dioxide 25 22 BUN 16 17 Creatinine 0.76 0.69 Glucose 142 H 267 H Calcium 9.2 8.5 L Liver Function 03/09/24 Range/Units 17:40 Total Bilirubin 0.4 (0.2-1.0) mg/dl AST 41 H (13-39) U/L ALT 54 H (7-52) U/L Alkaline Phosphatase 113 H (34-104) U/L Albumin 4.0 (3.4-5.0) gm/dl
[2024-03-10] MEDS: KETOROLAC TROMETHAMINE 15 MG/ML VIAL IV PRN (19:38)
[2024-03-10] MEDS ORDERED: LANTUS PER UNIT CHARGE SC ONE (20:00)
[2024-03-11 04:49] LABS: Hematocrit (blood only) 40.3 % (42.0-52.0); Hemoglobin 14.2 g/dl (14.0-18.0); Mean Corpuscular Hemoglobin 32.3 pg (25.0-34.0); Mean Corpuscular Hgb Conc 35.2 g/dL (32.0-36.0); Mean Corpuscular Volume 91.6 fL (80.0-100.0); Mean Platelet Volume 10.4 fL (9.4-12.4); Platelet Count 248 K/uL (130-400); RDW Coefficient of Variation 12.4 % (11.5-14.5); RDW Standard Deviation 41.4 fL (36.4-46.3); White Blood Count 21.76 K/ul (4.8-10.8)
[2024-03-11 05:02] LABS: Albumin Globulin Ratio 1.1 (0.9-2); Albumin Level 3.3 gm/dl (3.4-5.0); BUN Creatinine Ratio 34.8 (10-20); Bilirubin,Total 0.4 mg/dl (0.2-1.0); Calcium 8.3 mg/dl (8.6-10.3); Creatinine Clr Calc Pharmacy 149.8 ml/min; Est GFR (African American) 125.6 ml/min; Est GFR (Non-African American) 108.4 ml/min; Globulin 2.9 gm/dl (2.5-4.0); Potassium 3.9 mmol/L (3.5-5.1); Total Protein 6.2 gm/dl (6.0-8.3)
[2024-03-11] MEDS: VANCOMYCIN LEVEL ONE (05:44)
[2024-03-11] MEDS: LANTUS PER UNIT CHARGE SC ONE (07:49)
[2024-03-11] MEDS: INSULIN ASPART PER UNIT CHARGE SC SCH (08:32)
[2024-03-11] MEDS: dexAMETHasone 4 MG in SYRINGE 0 ML IV SCH (08:37)
--- NOTE | 2024-03-11 08:54 | History & Physical Bridge Note ---
Date of Service March 11, 2024 History & Physical Bridge Note I have examined the patient, reviewed the History & Physical and in the interval since the performance of the History & Physical I have noted the following changes of clinical significance: Patient has no pain now. He has tolerated and oral liquid diet well. On examination with a flexible scope I can see much less swelling of the supraglottic area.I can see the posterior 1/2 of the glottis now Plan: Patient can have a full diet. He can be moved out of the ICU today and likely by tomorrow be ready for discharge
--- NOTE | 2024-03-11 09:01 | Critical Care Progress Note ---
Date of Service March 11, 2024 Assessment & Plan (1) Supraglottitis: Plan: Patient was swelling of the epiglottis and air glottic folds with prominent narrowing of the airway with findings suggestive of infectious process involving the epiglottis and Larynex. Patient evaluated by ENT showing grade 3 Edema of epiglottis and arytenoid. Reevaluated at 2300, with no worsening. - Admitted to ICU overnight for close observation - Per ENT management, undergoing treatment with high-dose steroids and Unasyn -10 mg Decadron IV today and then 4 mg next 3 days - Blood cultures pending - NPO Patient is ambulatory, ordered to ambulate every shift. At risk for possible emergent airway intervention considered low risk for venous thromboembolism and given ambulatory state will not do chemoprophylaxis. (2) Uncontrolled diabetes mellitus with hyperglycemia: Plan: Last hemoglobin A1c 15. Currently hyperglycemic with BSG 220. Normally takes glipizide but unsure of compliance. Will proceed with sliding scale as patient is NPO. ICU hyperglycemic protocol. (3) Methamphetamine abuse in remission: Plan: Stable. Reports last use 1 year ago. (4) Smoking: Plan: Reports smoking 1 PPD. No pulmonary history. Nicotine patch. Encourage cessation. (5) Hepatitis C: Plan: Reports being diagnosed with a last incarceration. Patient reports refusing therapy at that time. Admission and Anticipated Discharge Date Admission Date: March 09, 2024 Results & Data Results & Data Vital Signs (Past 12 Hours) Vital Signs Temp Pulse Pulse Resp BP BP Pulse Ox 03/11/24 08:00 69 15 142/77 H 96 03/11/24 07:00 36.6 C 83 16 148/91 H 99 03/11/24 06:21 73 22 96 03/11/24 06:18 82 20 98 03/11/24 06:02 146/69 H 03/11/24 06:00 86 18 97 03/11/24 05:51 77 20 96 03/11/24 05:45 83 30 H 95 03/11/24 05:24 84 5 L 97 03/11/24 05:15 86 26 H 98 03/11/24 05:00 81 20 97 03/11/24 05:00 150/85 H 03/11/24 04:54 77 17 96 03/11/24 04:42 85 17 98 03/11/24 04:39 84 17 03/11/24 04:24 78 14 96 03/11/24 04:20 148/83 H 03/11/24 04:18 88 16 98 03/11/24 04:06 80 15 148/83 H 97 03/11/24 03:06 85 22 146/77 H 96 03/11/24 02:06 92 H 23 145/77 H 98 03/11/24 01:06 88 17 128/66 100 03/11/24 00:03 96 H 19 147/77 H 96 03/10/24 23:45 99 H 21 98 03/10/24 23:36 98 H 20 97 03/10/24 23:31 97 H 03/10/24 23:29 03/10/24 23:12 94 H 18 97 03/10/24 23:03 108 H 16 135/66 100 03/10/24 22:03 94 H 19 145/82 H 97 03/10/24 21:45 100 H 14 100 Pulse Ox O2 Del Method O2 Del Method 03/11/24 08:00 Room Air 03/11/24 07:00 Room Air 03/11/24 06:21 03/11/24 06:18 03/11/24 06:02 03/11/24 06:00 03/11/24 05:51 03/11/24 05:45 03/11/24 05:24 03/11/24 05:15 03/11/24 05:00 03/11/24 05:00 03/11/24 04:54 03/11/24 04:42 03/11/24 04:39 03/11/24 04:24 03/11/24 04:20 03/11/24 04:18 03/11/24 04:06 03/11/24 03:06 03/11/24 02:06 03/11/24 01:06 03/11/24 00:03 03/10/24 23:45 03/10/24 23:36 03/10/24 23:31 03/10/24 23:29 98 Room Air 03/10/24 23:12 03/10/24 23:03 03/10/24 22:03 03/10/24 21:45 Critical Care Results & Data Vital Signs (Past 12 Hours) Vital Signs Temp Pulse Pulse Resp BP BP Pulse Ox 03/11/24 08:00 69 15 142/77 H 96 03/11/24 07:00 36.6 C 83 16 148/91 H 99 03/11/24 06:21 73 22 96 03/11/24 06:18 82 20 98 03/11/24 06:02 146/69 H 03/11/24 06:00 86 18 97 03/11/24 05:51 77 20 96 03/11/24 05:45 83 30 H 95 03/11/24 05:24 84 5 L 97 03/11/24 05:15 86 26 H 98 03/11/24 05:00 81 20 97 03/11/24 05:00 150/85 H 03/11/24 04:54 77 17 96 03/11/24 04:42 85 17 98 03/11/24 04:39 84 17 03/11/24 04:24 78 14 96 03/11/24 04:20 148/83 H 03/11/24 04:18 88 16 98 03/11/24 04:06 80 15 148/83 H 97 03/11/24 03:06 85 22 146/77 H 96 03/11/24 02:06 92 H 23 145/77 H 98 03/11/24 01:06 88 17 128/66 100 03/11/24 00:03 96 H 19 147/77 H 96 03/10/24 23:45 99 H 21 98 03/10/24 23:36 98 H 20 97 03/10/24 23:31 97 H 03/10/24 23:29 03/10/24 23:12 94 H 18 97 03/10/24 23:03 108 H 16 135/66 100 03/10/24 22:03 94 H 19 145/82 H 97 03/10/24 21:45 100 H 14 100 Pulse Ox O2 Del Method O2 Del Method 03/11/24 08:00 Room Air 03/11/24 07:00 Room Air 03/11/24 06:21 03/11/24 06:18 03/11/24 06:02 03/11/24 06:00 03/11/24 05:51 03/11/24 05:45 03/11/24 05:24 03/11/24 05:15 03/11/24 05:00 03/11/24 05:00 03/11/24 04:54 03/11/24 04:42 06/04/24 04:39 03/11/24 04:24 03/11/24 04:20 03/11/24 04:18 03/11/24 04:06 03/11/24 03:06 03/11/24 02:06 03/11/24 01:06 03/11/24 00:03 03/10/24 23:45 03/10/24 23:36 03/10/24 23:31 03/10/24 23:29 98 Room Air 03/10/24 23:12 03/10/24 23:03 03/10/24 22:03 03/10/24 21:45 Lab & Micro Results (Past 24 Hours) RBC 4.40 M/uL (4.70-6.10) L 03/11/24 WBC 21.76 K/ul (4.8-10.8) H 03/11/24 Hgb 14.2 g/dl (14.0-18.0) 03/11/24 Hct 40.3 % (42.0-52.0) L 03/11/24 MCV 91.6 fL (80.0-100.0) 03/11/24 MCH 32.3 pg (25.0-34.0) 03/11/24 MCHC 35.2 g/dL (32.0-36.0) 03/11/24 RDW Standard Deviation 41.4 fL (36.4-46.3) 03/11/24 RDW Coefficient of Variation 12.4 % (11.5-14.5) 03/11/24 Plt Count 248 K/uL (130-400) 03/11/24 MPV 10.4 fL (9.4-12.4) 03/11/24 Na 138 mmol/L (136-145) 03/11/24 K 3.9 mmol/L (3.5-5.1) 03/11/24 Cl 107 mmol/L (98-107) 03/11/24 CO2 26 mmol/L (21-32) 03/11/24 Anion Gap 5 (3-11) 03/11/24 BUN 24 mg/dl (6-23) H 03/11/24 Creatinine 0.69 mg/dl (0.6-1.4) 03/11/24 Estimated GFR ( Amer) 125.6 ml/min 03/11/24 Estimated GFR (Non-Af Amer) 108.4 ml/min 03/11/24 BUN/Creatinine Ratio 34.8 (10-20) H 03/11/24 Glu 206 mg/dl (70-99(Fasting)) H 03/11/24 Ca 8.3 mg/dl (8.6-10.3) L 03/11/24 Total Bilirubin 0.4 mg/dl (0.2-1.0) 03/11/24 AST 23 U/L (13-39) 03/11/24 ALT 36 U/L (7-52) 03/11/24 Alkaline Phosphatase 84 U/L (34-104) 03/11/24 TP 6.2 gm/dl (6.0-8.3) 03/11/24 Albumin 3.3 gm/dl (3.4-5.0) L 03/11/24 Globulin 2.9 gm/dl (2.5-4.0) 03/11/24 Albumin/Globulin Ratio 1.1 (0.9-2) 03/11/24 Calcium Level 8.3 mg/dl (8.6-10.3) L 03/11/24 04:32 Microbiology 03/09/24 19:59 Aerobic Blood Culture - Preliminary Blood No growth in Aerobic bottle after 24 hours. Anaerobic Blood Culture - Final 03/09/24 20:15 Aerobic Blood Culture - Preliminary Blood No growth in Aerobic bottle after 24 hours. Anaerobic Blood Culture - Preliminary No growth in Anaerobic bottle after 24 hours. I & O Totals 24 Hours 03/10/24 03/11/24 03/12/24 06:59 06:59 06:59 Intake Total 970 / 970 3010 / 3010 275 / 275 Output Total 630 / 630 1050 / 1050 Balance 340 / 340 1960 / 1960 275 / 275 Cumulative 03/09/24 15:29 thru 03/11/24 07:45 Intake Total 4255 Output Total 1680 Balance 2575 RT Ventilator Mngmt (Last Documented) Ventilator Ordered Settings Respiratory Rate 15 03/11/24 08:00 Ventilator - PT Measurements Respiratory Rate 15 Coding Diagnoses Supraglottitis J04.30 Uncontrolled diabetes mellitus with hyperglycemia E11.65 Methamphetamine abuse in remission F15.11 Smoking F17.200 Hepatitis C B19.20
--- NOTE | 2024-03-11 11:42 | Pharmacy Report ---
Pharmacy Glycemic Short Note 2 - Date of Service March 11, 2024 - Glycemic Short BSG Results (Last 24 hours): 03/10/24 03/10/24 03/10/24 15:53 19:31 23:08 Glucose POC Glucose 237 H 210 H 282 H 03/11/24 03/11/24 03/11/24 04:30 04:32 07:01 Glucose 206 H POC Glucose 210 H 158 H 03/11/24 11:30 Glucose POC Glucose 118 H OUTPATIENT ANTIDIABETIC REGIMEN: * Glipizide * HbA1c 8.6% on 03/09/24 ASSESSMENT: 03/11 * Steroids tapered to dexamethasone 4 mg IV daily. Diet now ordered. * AM fasting BSG reasonable, but did require correctional insulin overnight. Will keep Lantus as-is despite correctional insulin, due to steroid taper * BSG's yesterday all above goal. Will tighten carb ratio slightly. However, will not be aggressive w tightening due to steroid taper today. OK to switch from q4h to ACHS checks. 03/10 * 53 yo M w T2DM admitted to ICU for possible need for aggressive airway management 2nd supraglottitis and stated on very high dose steroids. NPO at this time * BSG's >200 mg/dL x3 - will tighten Novolog to close to weight-based severe stress estimate * Will initiate Lantus, although will be conservative w dose given NPO and unknown BSG response to long-acting insulin at this time PLAN FOR INPATIENT GLYCEMIC CONTROL: * Hold outpatient oral diabetes medications * Basal insulin * Lantus 20 units SQ x1 now * Bolus insulin * NovoLog per scale ACHS or Q6hrs while NPO * Goal Range: Low 140 mg/dL - High 180 mg/dL * Correction Factor: 20 mg/dL/unit * Nutritional / Prandial insulin per carb ratio of 1 unit per 5 grams CHO consumed
[2024-03-11] MEDS: PANTOprazole 40 MG TAB PO SCH (11:53)
--- NOTE | 2024-03-11 11:56 | Pharmacy Report ---
Pharmacy PK ABX Note - Date of Service March 11, 2024 - Assessment and Plan Assessment * 53 year old M receiving Unasyn and vancomycin for treatment of supraglottitis * Pertinent microbiologic data includes: blood cultures w no growth to date Plan Vancomycin * Current maintenance dose: 1250 mg IV every 12 hours * Target AUC/FREDDIE of 400-600 mg/L.hr * Random level of 7.4 mcg/mL this AM associated with a subtherapeutic AUC of 334 mg/L.hr * Increase vancomycin to 1250 mg IV q8h * Trough level ordered for: 03/13 @ 0530 Pharmacy will continue to follow and will adjust dose/frequency as necessary. Thank you. Pharmacy has transitioned to AUC monitoring for vancomycin. AUC/FREDDIE is the preferred PK/PD target and is associated with decreased risk of nephrotoxicity compared to traditional trough targets.
[2024-03-11] MEDS: VANCOMYCIN HCL 1,250 MG in SODIUM CHLORIDE 0.9% 250 ML IV SCH (14:33)
--- NOTE | 2024-03-11 15:31 | Hospitalist Progress Note ---
Date of Service March 11, 2024 Assessment & Plan (1) Supraglottitis: (2) Uncontrolled diabetes mellitus with hyperglycemia: (3) Smoking: (4) Methamphetamine abuse in remission: (5) Hepatitis C: Plan 53 year old male with uncontrolled DM, h/o IV drug abuse, Hep C, active smoker who presented to the ED / with 2 day history of sore throat with trouble clearing the phlegm. Patient underwent CT soft tissue of the neck which showed prominent swelling at level of epiglottis and aryepiglottic folds with narrowing of the airway. He was evaluated in the emergency department by ENT with bronchoscope. He was found to have grade 3 edema of the epiglottis and arytenoid, nonobstructive. He was given high-dose glucocorticoid and broad- spectrum antibiotics and admitted to ICU for close monitoring. CT soft tissue neck- Swelling of the epiglottis and aryepiglottic folds are seen. Prominent narrowing of the airway is seen. Findings are nonspecific but may represent infectious process involving the epiglottis and/or larynx. Right sided reactive lymph nodes are seen. No definite drainable fluid collection. CTA chest- 1. No acute abnormality and in particular no evidence of acute aortic injury. 2. Pulmonary nodule measuring 4 mm. According to Fleischner criteria, no follow-up is required in low risk patients, in high-risk patients, a 12 month follow-up CT can be optionally performed. Supraglottitis- CT reviewed as above. RVP negative. Seen by ENT. Improved with high dose of decadron and empiric iv Vanc/Unasyn. Continues to improve- no dyspnea or stridors and voice improving. Closely observed in ICU and now stable to transfer out to PCU. Continue decadron, antibiotics. Follow further ENT recommendations. Blood clx negative Uncontrolled DM-2 with hyperglycemia- A1c 15. Continue lantus humalog. Seen by rfp writer. Glycemic pharmacist managing insulin. Methamphetamine use in remission Tobacco abuse- states smokes 1/2 PPD. On nicoderm patch. Recommended quitting Hepatitis C- diagnosed with last incarceration. reports refusing therapy at that time. Recommended f/u with GI as OP if he wishes further evaluation and treatment. Elevated LFTs- mild elevation noted. now resolved Anxiety/depression- Psych consulted per request Leucocytosis- could be from steroids. Recheck in am. Already on ABx DVT ppx- SCD, ambulation. Can likely start chemoppx tomorrow Dispo- Transfer out of ICU to PCU for continued monitoring Time spent- approx 35 mins Admission and Anticipated Discharge Date Admission Date: March 09, 2024 Subjective Patient was seen and examined at bedside. States he feels better. Sore throat /. No dysphagia, dyspnea. Tolerating diet. No fever or chills. He endorses having severe anxiety and states he is depressed. He sleeps most of the time at home. He would like to see a psychiatry. He denies any suicidal or homicidal ideations. Review of Systems Review of Systems: All systems reviewed & are unremarkable except as noted in Subjective Physical Exam Physical Exam: General: Lying comfortably in bed, not in distress, on room air HEENT: EOMI, DAR, MMM Chest: Clear breath sounds bilaterally, no wheezes or crackles CVS: Regular rate and rhythm, normal heart sounds, no murmur Abdomen: Soft, non tender, not distended, normal bowel sounds Neuro: Awake, alert, oriented, conversing well, non focal Extremities: No cyanosis, clubbing or edema Psych: Low mood Results & Data Results & Data Vital Signs (Past 12 Hours) Vital Signs Temp Pulse Pulse Resp BP BP Pulse Ox 03/11/24 12:00 36.5 C 79 21 132/72 95 03/11/24 11:00 75 13 129/73 97 03/11/24 10:00 73 19 145/82 H 99 03/11/24 09:00 80 22 162/65 H 96 03/11/24 08:00 69 16 142/77 H 96 03/11/24 07:00 36.6 C 83 28 H 148/91 H 99 03/11/24 06:21 73 22 96 03/11/24 06:18 82 20 98 03/11/24 06:02 146/69 H 03/11/24 06:00 86 18 97 03/11/24 05:51 77 20 96 03/11/24 05:45 83 30 H 95 03/11/24 05:24 84 5 L 97 03/11/24 05:15 86 26 H 98 03/11/24 05:00 81 20 97 03/11/24 05:00 150/85 H 03/11/24 04:54 77 17 96 03/11/24 04:42 85 17 98 03/11/24 04:39 84 17 03/11/24 04:24 78 14 96 03/11/24 04:20 148/83 H 03/11/24 04:18 88 16 98 03/11/24 04:06 80 15 148/83 H 97 O2 Del Method 03/11/24 12:00 Room Air 03/11/24 11:00 Room Air 03/11/24 10:00 Room Air 03/11/24 09:00 Room Air 03/11/24 08:00 Room Air 03/11/24 07:00 Room Air 03/11/24 06:21 03/11/24 06:18 03/11/24 06:02 03/11/24 06:00 03/11/24 05:51 03/11/24 05:45 03/11/24 05:24 03/11/24 05:15 03/11/24 05:00 03/11/24 05:00 03/11/24 04:54 03/11/24 04:42 03/11/24 04:39 03/11/24 04:24 03/11/24 04:20 03/11/24 04:18 03/11/24 04:06 Laboratory Results Short CBC 03/11/24 Range/Units 04:32 WBC 21.76 H (4.8-10.8) K/ul Hgb 14.2 (14.0-18.0) g/dl Hct 40.3 L (42.0-52.0) % Plt Count 248 (130-400) K/uL BMP 03/11/24 04:32 Sodium 138 Potassium 3.9 Chloride 107 Carbon Dioxide 26 BUN 24 H Creatinine 0.69 Glucose 206 H Calcium 8.3 L Liver Function 03/11/24 Range/Units 04:32 Total Bilirubin 0.4 (0.2-1.0) mg/dl AST 23 (13-39) U/L ALT 36 (7-52) U/L Alkaline Phosphatase 84 (34-104) U/L Albumin 3.3 L (3.4-5.0) gm/dl
[2024-03-12] MEDS ORDERED: oxyCODONE HCL IR 5 MG TAB (IMMEDIATE RELEASE) PO PRN (04:56)
[2024-03-12] MEDS ORDERED: ACETAMINOPHEN 325 MG TAB PO PRN (04:56)
--- NOTE | 2024-03-12 05:28 | Electrocardiogram Report ---
Test Reason : Blood Pressure : / mmHG Vent. Rate : 089 BPM Atrial Rate : 089 BPM P-R Int : 148 ms QRS Dur : 080 ms QT Int : 348 ms P-R-T Axes : 037 054 032 degrees QTc Int : 423 ms Normal sinus rhythm Normal ECG When compared with ECG of 01-APR-2023 10:03, No significant change was found Confirmed by Loi Garsia ([id number]) on 03/12/2024 5:27:54 AM Referred By: REFERRED SELF Confirmed By:Loi Garsia
[2024-03-12] MEDS: oxyCODONE HCL IR 5 MG TAB (IMMEDIATE RELEASE) PO STA (05:31)
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
--- NOTE | 2024-03-12 07:13 | XRay Report ---
LEFT HAND 3 VIEWS CLINICAL HISTORY: Left hand swelling. FINDINGS: 3 views of the left hand are obtained. No prior studies are available for comparison at the time of dictation. The skeletal structures are well mineralized. No acute fracture is seen. There is no dislocation. Chronic deformity is noted in the first distal phalanx. Mild osteoarthritic change i s seen throughout the wrist and hand. No erosive disease is clearly seen. Soft tissue edema is noted. IMPRESSION: Soft tissue swelling with no acute bony abnormality identified. Electronically signed by: Tony Kimble M.D. 03/12/2024 7:11 AM
[2024-03-12] MEDS: MoRPHine SULFATE 4 MG/ML 1 ML CARP\\VIAL IV PRN (07:19)
[2024-03-12 07:49] LABS: Hematocrit (blood only) 39.3 % (42.0-52.0); Hemoglobin 13.7 g/dl (14.0-18.0); Mean Corpuscular Hgb Conc 34.9 g/dL (32.0-36.0); Mean Corpuscular Volume 91.8 fL (80.0-100.0); Mean Platelet Volume 10.5 fL (9.4-12.4); Platelet Count 219 K/uL (130-400); RDW Coefficient of Variation 12.6 % (11.5-14.5); RDW Standard Deviation 41.8 fL (36.4-46.3); Red Blood Count 4.28 M/uL (4.70-6.10); White Blood Count 12.26 K/ul (4.8-10.8)
[2024-03-12 07:54] LABS: Est GFR (African American) 121.4 ml/min; Est GFR (Non-African American) 104.7 ml/min; Magnesium 1.9 mg/dl (1.7-2.4); Potassium 3.6 mmol/L (3.5-5.1)
[2024-03-12] MEDS: LANTUS PER UNIT CHARGE SC SCH (08:11)
[2024-03-12] MEDS ORDERED: MoRPHine SULFATE 4 MG/ML 1 ML CARP\\VIAL IV PRN (08:14)
[2024-03-12] MEDS ORDERED: IBUPROFEN 200 MG/10 ML UDC PO PRN (10:19)
--- NOTE | 2024-03-12 10:20 | Ultrasound Report ---
LEFT UPPER EXTREMITY VENOUS DOPPLER HISTORY: Left arm pain and swelling of the arm COMPARISON STUDY: None. FINDINGS: The left internal jugular vein is patent. There is normal flow within the left subclavian v ein. There is normal flow and compressibility within the left axillary, basilic, brachial, radial, ul joaquin, and visualized cephalic veins. IMPRESSION: No DVT within the left upper extremity. ACT 112: Negative or not required by law. Electronically signed by: Jono Ashby M.D. 03/12/2024 10:18 AM
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
--- NOTE | 2024-03-12 15:07 | Hospitalist Progress Note ---
Date of Service March 12, 2024 Assessment & Plan (1) Supraglottitis: (2) Uncontrolled diabetes mellitus with hyperglycemia: (3) Smoking: (4) Methamphetamine abuse in remission: (5) Hepatitis C: Plan 53 year old male with uncontrolled DM, h/o IV drug abuse, Hep C, active smoker who presented to the ED 03/09 with 2 day history of sore throat with trouble clearing the phlegm. Patient underwent CT soft tissue of the neck which showed prominent swelling at level of epiglottis and aryepiglottic folds with narrowing of the airway. He was evaluated in the emergency department by ENT with bronchoscope. He was found to have grade 3 edema of the epiglottis and arytenoid, nonobstructive. He was given high-dose glucocorticoid and broad- spectrum antibiotics and admitted to ICU for close monitoring. Patient improved on high-dose Decadron and empiric IV vancomycin/Unasyn. He was transferred out of ICU on March 11, 2024 CT soft tissue neck- Swelling of the epiglottis and aryepiglottic folds are seen. Prominent narrowing of the airway is seen. Findings are nonspecific but may represent infectious process involving the epiglottis and/or larynx. Right sided reactive lymph nodes are seen. No definite drainable fluid collection. CTA chest- 1. No acute abnormality and in particular no evidence of acute aortic injury. 2. Pulmonary nodule measuring 4 mm. According to Fleischner criteria, no follow-up is required in low risk patients, in high-risk patients, a 12 month follow-up CT can be optionally performed. Supraglottitis- CT reviewed as above. RVP negative. Seen by ENT. Improved with high dose of decadron and empiric iv Vanc/Unasyn. Continues to improve- no dyspnea or stridors and voice improving. Continue decadron, antibiotics. Discussed with Dr. Patino over the phone on March 12. He recommended to stop steroids at discharge, complete antibiotic course and follow-up with him in 1 month. Blood clx negative Left hand swellingpatient noted to have pain and swelling of right hand that gradually started. Patient reports issues with the hand before as well. X-ray shows soft tissue swelling. Venous duplex negative for DVT. Will appreciate orthopedic input Uncontrolled DM-2 with hyperglycemia- A1c 8.6. Continue lantus humalog. Seen by religious educator. Glycemic pharmacist managing insulin. Methamphetamine use in remission Tobacco abuse- states smokes 1/2 PPD. On nicoderm patch. Recommended quitting Hepatitis C- diagnosed with last incarceration. reports refusing therapy at that time. Recommended f/u with GI as OP if he wishes further evaluation and treatment. Elevated LFTs- mild elevation noted. now resolved Anxiety/depression- Psych consulted per request. no concerns Leucocytosis- could be from steroids. Already on ABx DVT ppx- SCD, ambulation. C Dispo- Pending medical clearance. Patient hospitalized for supraglottic swelling, monitor inpatient overnight. Time spent- approx 35 mins Please note the above document was generated using voice recognition software. It may contain grammatical, syntax or spelling errors. Any formal questions or concerns about the content, text or information contained within the body of this dictation should be directly addressed to the provider for clarification Admission and Anticipated Discharge Date Admission Date: March 09, 2024 Subjective Patient seen and examined at bedside. Is comfortable; not in distress Denies any shortness of breath or stridor. Comfortable and saturating well on room air Reports pain on his left hand Review of Systems Review of Systems: All systems reviewed & are unremarkable except as noted in Subjective Physical Exam Physical Exam: General: Lying comfortably in bed, not in distress, on room air HEENT: EOMI, DAR, MMM Chest: Clear breath sounds bilaterally, no wheezes or crackles CVS: Regular rate and rhythm, normal heart sounds, no murmur Abdomen: Soft, non tender, not distended, normal bowel sounds Neuro: Awake, alert, oriented, conversing well, non focal Extremities: Diffuse swelling of left hand; ROM of wrist intact. No open wounds, redness Psych: Low mood Results & Data Results & Data Vital Signs (Past 12 Hours) Vital Signs Temp Pulse Pulse Pulse Resp BP Pulse Ox 03/12/24 11:03 36.8 C 70 20 151/87 H 98 03/12/24 07:02 62 03/12/24 06:34 36.7 C 65 16 158/85 H 99 O2 Del Method 03/12/24 11:03 Room Air 03/12/24 07:02 03/12/24 06:34 Room Air
--- NOTE | 2024-03-12 16:32 | Orthopedic Consultation ---
Date of Service March 12, 2024 Assessment & Plan (1) Left hand pain: Seen and examined by Dr. Jaquez as well. 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 No signs of current infection. He also has some paresthesias. We would recommend seeing a hand specialist or follow up as an outpatient with his established orthopedist for further work up such as emg/nerve tests and management. There really isn't any surgical intervention that is going to correct his problem. No further orthopedic intervention at this time. History of Present Illness Reason for Consultation: . Requesting Physician: . Attending Physician: Tino Meza MD . Brian is a 53 year old right hand dominant patient admitted to [facility] for treatment of surpaglottitis, with previous history of IV drug abuse and hepatitis c. We were consulted for swelling and pain in the left hand. He has a h/o multiple finger fractures, a thumb infection, some intermittent numbness and tingling. Major complaint is that he believes he has dupuytrens contracture, was scheduled to see an life enrichment specialist in the [facility] today but had to cancel. He describes pain in his hand, contractures of the fingers, pain that radiates into his forearm. Allergies Allergy/AdvReac Type Severity Reaction Status Date / Time No Known Allergies Allergy Verified 03/09/24 17:48 Home Medications Medication Instructions Recorded Confirmed Type omeprazole magnesium 20 mg 20 mg PO DAILY PRN 10/08/22 03/09/24 History tablet,delayed release (Prilosec HEARTBURN/INDIGESTION OTC) glipizide 5 mg tablet 5 mg PO QAM 03/09/24 03/09/24 History Past Med/Surg History Problem List (Updated 03/12/24 @ 16:28 by Bautista Taylor PA-C) Left hand pain History of drug dependence Sepsis Acute epiglottiditis (Acute) Hepatitis C Supraglottitis Homelessness unspecified Food insecurity Methamphetamine abuse in remission Smoking Uncontrolled diabetes mellitus with hyperglycemia Peripheral neuropathy Hyperglycemia due to type 2 diabetes mellitus (Acute) Dehydration (Acute) Urinary incontinence (Acute) Acute hyponatremia (Acute) Depression (Chronic) Anxiety (Chronic) [id number] (Acute) Medical History Heroin abuse Surgical History No pertinent past surgical history Family History Other No family history of disorders Social History Smoking Status: Current every day smoker Tobacco Type: Cigarettes Cigarettes Per Day: 1/2 ppd; Hx Alcohol Use: No Hx Substance Use: Yes Last Used Substance: Days (ago) Last Used Substance Other:: Patient stated last use was 1 year ago Substance Use Type Other:: fentanyl, meth Preferred Language: Georgian Communication Ability: Effective Computer Art Instructor Required: No Beliefs That Will Affect Care: None Current Living Situation: Family Feels Safe at Home: Yes Safety Concerns: Feels Safe At This Time Assistive Devices: None Assistive Devices Comment: patient stated he is in need of both glasses and dentures Review of Systems All systems reviewed & are unremarkable except as noted in HPI & below. Physical Exam .alert and oriented. NAD Left hand: no obvious swelling, redness or warmth. He has some deformity of his thumb from previous infection. No signs of active infection. He has contractures of all of his fingers and some palpable cords in his palm. He has pain with finger range of motion. No pain or stiffness with wrist motion. Good wrist extension and flexion. NVI Results & Data Results & Data Laboratory Results . Diagnostic Findings .xrays of the left hand reviewed and shows no acute fractures. he does have some degenerative changes. PG Care Time/CCT Total # of Minutes Spent Total Time Spent with Patient: Total time spent is greater than 50% in coordination of care (as documented) at patient's floor/unit and/or counseling patient: Coding Level of Care Code 66441 IN/OBS CONSULT LVL 3,45M Diagnoses Left hand pain M79.642
--- NOTE | 2024-03-12 17:13 | Discharge Summary ---
Date of Service March 12, 2024 Admission HPI Per Admitting Provider History obtained from patient and records. Medical history significant for DM 2 on oral medications, GERD, 2 on oral medications, ongoing tobacco abuse, past history of substance abuse as per records. Last confinement October 2022 for influenza A illness and uncontrolled DM2. Hemoglobin A1c at time of confinement was 15. Yesterday, patient noted odynophagia symptoms with sore throat and voice change. Some chills, no fever. Cough symptoms productive of clear sputum. No chest pain, no SOB, no headache. Patient consulted ER for evaluation. IV Decadron and Unasyn given for supraglottitis. Medical History as above Surgical History : Dupuytren contracture surgery Family History : DM, heart disease Personal/Social history : Half pack daily, occasional EtOH intake, disabled Admission Exam Per Admitting Provider GENERAL: Slightly anxious, uncomfortable, dysphonic, negative stridor, no resp iratory distress SKIN: Normal color, warm HEENT: Abie palpebral conjunctivae, no ptosis, dry buccal mucosa NECK : Supple, no tenderness CHEST : Decreased breath sounds, no tenderness HEART : RRR, no obvious murmurs ABDOMEN: Some distention, nontender EXTREMITIES : No LE swelling/tenderness, no other conspicuous deformities noted NEUROLOGIC : Coherent, no facial asymmetry, no other gross focality Principal Diagnosis Supraglottis swelling/infection Discharge Exam General: Lying comfortably in bed, not in distress, on room air HEENT: EOMI, DAR, MMM Chest: Clear breath sounds bilaterally, no wheezes or crackles CVS: Regular rate and rhythm, normal heart sounds, no murmur Abdomen: Soft, non tender, not distended, normal bowel sounds Neuro: Awake, alert, oriented, conversing well, non focal Extremities: Diffuse swelling of left hand; ROM of wrist intact. No open wounds, redness Psych: Low mood Discharge Data Allergies Allergy/AdvReac Type Severity Reaction Status Date / Time No Known Allergies Allergy Verified 03/09/24 17:48 Consultations 03/09/24 21:03 ED Decision to Admit Stat 03/09/24 21:46 Consult Otolaryngology (Head and Neck) Routine 03/09/24 23:29 Consult Senior Revenue Accountant Routine 03/11/24 14:02 Consult Psychiatry Routine 03/12/24 11:59 Consult Orthopedic Surgery Routine Ordered Studies 03/09/24 17:40 CT angio chest dissec wo/w con Stat CT neck soft tissues [CT soft tissue neck w con] Stat 03/12/24 08:15 US venous duplex arm [US venous doppler UE LT] Urgent Hospital Course (1) Supraglottitis: (2) Uncontrolled diabetes mellitus with hyperglycemia: (3) Smoking: (4) Methamphetamine abuse in remission: (5) Hepatitis C: Plan 53 year old male with uncontrolled DM, h/o IV drug abuse, Hep C, active smoker who presented to the ED 03/09 with 2 day history of sore throat with trouble clearing the phlegm. Patient underwent CT soft tissue of the neck which showed prominent swelling at level of epiglottis and aryepiglottic folds with narrowing of the airway. He was evaluated in the emergency department by ENT with bronchoscope. He was found to have grade 3 edema of the epiglottis and arytenoid, nonobstructive. He was given high-dose glucocorticoid and broad- spectrum antibiotics and admitted to ICU for close monitoring. Patient improved on high-dose Decadron and empiric IV vancomycin/Unasyn. He was transferred out of ICU on March 11, 2024 Supraglottitis inflammation/- Seen by ENT. Improved with high dose of decadron and empiric iv Vanc/Unasyn. Continues to improve- no dyspnea or stridors and voice improved. Completed decadron course. Discussed with Dr. Patino over the phone on March 12. He recommended to stop steroids at discharge, complete antibiotic course and follow-up with him in 1 month. Blood clx negative Patient discharge home with instruction to follow up with PCP. Verbalized understanding. Left hand swellingpatient noted to have pain and swelling of left hand that gradually started. Patient reports issues with the hand before as well. X-ray shows soft tissue swelling. Venous duplex negative for DVT. Orthopedics evaluated him; recommended to see hand surgeon as outpatient. Please note the above document was generated using voice recognition software. It may contain grammatical, syntax or spelling errors. Any formal questions or concerns about the content, text or information contained within the body of this dictation should be directly addressed to the provider for clarification Total Time Total Time Spent Total Time Spent (In Minutes): 34 Total Time Includes: Examination of the Patient, Discharge Planning, Medication Reconciliation, Communication With Other Providers and Other Discharge Plan Discharge Items Reason For Visit: SUPRAGLOTTITIS Discharge Diagnosis: Supraglottis swelling Condition on Discharge: Fair Activity: Resume your previous activity Non-emergency contact: Primary Care Provider Call non-emergency contact if: you have any medication questions and your symptoms worsen Follow-up/Referrals: Nelson Zamarripa PA-C [Primary Care Provider] - Diet: Regular Addtl Attending Provider Instructions: You were admitted to the hospital due to inflammation/infection of the neck area. You are prescribed Augmentin(antibiotics) to be taken twice daily for 5 more days. You are also prescribed ibuprofen and Tylenol for pain in your hands. Please follow-up with your primary care doctor. An appointment will be set up for you for next week obtain referral for hand surgeon for management of your pain in your hand. Pending Studies at Discharge: No Stand-Alone Forms: My [facility], Smoking Cessation Medications and DC Order Prescriptions: New acetaminophen 325 mg Tablet 650 mg PO QID PRN (Reason: pain) Qty: 60 0RF amoxicillin-pot clavulanate 875-125 mg tablet 1 tab PO Q12H 5 Days Qty: 10 0RF ibuprofen 600 mg tablet 600 mg PO Q8H PRN (Reason: pain) Qty: 20 0RF Continued omeprazole magnesium [Prilosec OTC] 20 mg Tablet,Delayed Release (Dr/Ec) 20 mg PO DAILY PRN (Reason: HEARTBURN/INDIGESTION) glipizide 5 mg tablet 5 mg PO ROJELIO Prather/Other Patient Handouts: Hypoglycemia (Low Blood Sugar), Managing Type 2 Diabetes Admission Data Admit Date/Time: 03/09/24 21:36 Attending Provider: Tino Meza Admit Provider: Milton Hurt Primary Care Provider: Nelson Zamarripa Other Providers: Milton Hurt; Jaziel Patino; Rafael Camacho; Mady Ospina; Kulwinder Britt; Jeff Jett Jr; Citlali Robins; Devi Mckeon; Gunner Christine; Jeff Jaquez
[2024-03-13] MEDS ORDERED: VANCOMYCIN LEVEL ONE (05:30)
== END 2024-03-12 18:19 | disposition home or self-care (01) | DRG 153 ==
LOC: ED 15:42 → SUATTDRO 21:36 → 1E 21:36 → 2S 03-11 21:32